=== PATIENT | male | born 1960 | race Caucasian/White ===

== ENCOUNTER 2017-07-25 16:22 | Emergency (ER) | payer MEDICARE, MEDICAID ==
[~2017-07-25] VITALS: Ht 182.9 cm; Wt 67.3 kg
[~2017-07-25 16:22] MED LIST: ADDERALL10 MG PO; APRISO0.375 GM PO; BUSPAR5 MG PO; CATAPRES 0.1MG0.1 MG PO; CEPHALEXIN500 M1 PO; COGENTIN .0.5 MG/TAB PO; DEPAKENE; DEPAKOTE ER 25250 MG PO; DEPAKOTE ER 50500 MG PO; DESYREL 100MG100 MG PO; INTUNIV4 MG PO; NORCO 325 MG-51 TAB PO; NORCO 325 MG-7.1 TAB PO; PHENERGAN W/CO120 ML PO; PRINIVIL20 MG PO; PROCARDIA XL 3030 MG PO; REMERON; REMERON30 MG PO; SENOKOT S 50 MG1 TAB PO; SEROQUEL 200MG200 MG PO; SEROQUEL300 MG PO; ULTRAM 50MG TAB50 MG PO; ZITHROMAX 250M250 MG PO; ZOLOFT
[2017-07-25 16:27] VITALS: TEMP 98.5
[2017-07-25] MEDS ORDERED: HUMIRA40 MG/0.1 SQ (16:49)
[2017-07-25] MEDS ORDERED: PREDNISONE10 MG PO (16:49)
[2017-07-25] MEDS ORDERED: IMURAN 50MG TAB50 MG PO (16:51)
[2017-07-25 17:02] LABS: BASO % 0.1 % (0.0-2.0); EOS % 0.3 % (0-4.0); GRAN # 6.3 (1.4-6.5); GRAN % 84.6 % (42.2-75.2); HEMATOCRIT 39.9 % (42.0-52.0); HEMOGLOBIN 14.1 g/dl (13.5-18.0); LYMPH # 0.7 (1.2-3.4); LYMPH % 9.3 % (20.0-51.0); MEAN CELL VOLUME 88 fl (80.0-100.0); MEAN CORPUSCULAR HEMOGLOBIN 31 pg (27.0-31.0); MEAN CORPUSCULAR HGB CONC 35 g/dl (33.0-37.0); MEAN PLATELET VOLUME 8.1 fl (7.4-10.4); MONO # 0.4 (0.1-0.6); PLATELET COUNT 306 K/mm3 (130-400); RED BLOOD COUNT 4.55 M/mm3 (4.20-5.60); REDCELL DISTRIBUTION WIDTH-CV 15.9 % (11.5-14.5)
[2017-07-25 17:18] LABS: ALBUMIN 3.7 gm/dL (3.5-5.0); BILIRUBIN,TOTAL 0.7 mg/dL (0.0-1.0); C-REACTIVE PROTEIN 0.6 mg/dL (0.0-0.9); CALCIUM 9.2 mg/dL (8.4-10.2); CREATININE, serum 0.77 mg/dL (0.66-1.25); POTASSIUM 4.6 mmol/L (3.4-5.0)
[2017-07-25] MEDS ORDERED: PREDNISONE20 MG PO (18:26)
[2017-07-25 18:30] VITALS: BP 136/84; PULSE 79
== END 2017-07-25 18:35 | disposition home or self-care (01) ==
LOC: COL.ER 16:22
PROVIDERS: Emergency Medicine
DX: K50.90 Crohn's disease, unspecified, without complications (principal); E87.1 Hypo-osmolality and hyponatremia; E86.0 Dehydration; J45.901 Unspecified asthma with (acute) exacerbation; F32.9 Major depressive disorder, single episode, unspecified; F43.10 Post-traumatic stress disorder, unspecified; Z90.49 Acquired absence of other specified parts of digestive tract; Z87.891 Personal history of nicotine dependence
CPT/HCPCS: J2060; J2405; J7030; J7512

== ENCOUNTER 2017-07-28 13:04 | Day surgery (SDC) | payer MEDICARE, MEDICAID ==
[~2017-07-28] VITALS: Ht 182.9 cm; Wt 67.5 kg
[~2017-07-28 13:04] MED LIST changes: +HUMIRA40 MG/0.1 SQ; +IMURAN 50MG TAB50 MG PO; +PREDNISONE10 MG PO; +PREDNISONE20 MG PO
[2017-07-28 13:38] VITALS: BP 126/93; PULSE 83; TEMP 98.8
[2017-07-28 14:35] VITALS: BP 98/73; PULSE 73; TEMP 98.1
[2017-07-28 14:50] VITALS: BP 102/77; PULSE 81
[2017-07-28 15:05] VITALS: BP 118/73; PULSE 77
[2017-07-28 15:20] VITALS: BP 130/60; PULSE 79
== END 2017-07-28 15:45 | disposition home or self-care (01) ==
LOC: SDCO 13:04
DX: K50.811 Crohn's disease of both small and large intestine with rectal bleeding (principal); I10 Essential (primary) hypertension; D50.0 Iron deficiency anemia secondary to blood loss (chronic); Z79.899 Other long term (current) drug therapy
CPT/HCPCS: J2250; J3010; J7030

== ENCOUNTER 2018-05-04 21:16 | Inpatient (IN) | payer MEDICARE, MEDICAID ==
[2018-05-04] VITALS (20 sets, daily range): BP systolic 127; BP diastolic 81; PULSE 68; TEMP 98.8; O2SAT 92–100
[~2018-05-04] VITALS: Ht 182.9 cm; Wt 71.5 kg
[~2018-05-04 21:16] MED LIST changes: +ZOFRAN ODT4 MG PO
[2018-05-04 21:59] LABS: BASO % 0.1 % (0.0-2.0); GRAN # 11.4 (1.4-6.5); GRAN % 95.1 % (42.2-75.2); HEMATOCRIT 41.6 % (42.0-52.0); HEMOGLOBIN 14.5 g/dl (13.5-18.0); LYMPH # 0.3 (1.2-3.4); LYMPH % 2.8 % (20.0-51.0); MEAN CELL VOLUME 89 fl (80.0-100.0); MEAN CORPUSCULAR HEMOGLOBIN 31 pg (27.0-31.0); MEAN CORPUSCULAR HGB CONC 35 g/dl (33.0-37.0); MEAN PLATELET VOLUME 8.6 fl (7.4-10.4); MONO # 0.2 (0.1-0.6); MONO % 1.7 % (1.7-9.3); PLATELET COUNT 288 K/mm3 (130-400); RED BLOOD COUNT 4.67 M/mm3 (4.20-5.60); REDCELL DISTRIBUTION WIDTH-CV 13.1 % (11.5-14.5)
[2018-05-04 22:11] LABS: ALBUMIN 3.8 gm/dL (3.5-5.0); BILIRUBIN,TOTAL 0.8 mg/dL (0.0-1.0); C-REACTIVE PROTEIN 1.8 mg/dL (0.0-0.9); CREATININE, serum 0.95 mg/dL (0.66-1.25); POTASSIUM 4.4 mmol/L (3.4-5.0); TOTAL PROTEIN 6.7 gm/dL (6.4-8.2)
--- NOTE | 2018-05-04 22:35 | NUR ---
Pt report received from Tawanna HOGUE in ED. Awaiting pt room to complete getting cleaned. Will call when room is ready.
[2018-05-04] MEDS ORDERED: STELARA90 MG/ML SQ (23:00)
[2018-05-04] MEDS ORDERED: REMERON45 MG PO (23:01)
[2018-05-04] MEDS ORDERED: 00186-0370-20 IH (23:02)
--- NOTE | 2018-05-04 23:27 | NUR ---
Tawanna called in ED and notified room is ready.
--- NOTE | 2018-05-04 23:30 | NUR ---
Pt arrived via w/c in street clothes to ICU05. Pt got up from w/c and walked to the other side of the room. Pt was assisted into a gown and gathered personal belongings to place at bedside table. Pt reported to staff wanting to sleep. Reports prior medication for nausea has improved nausea, although still present it is tolerable at this time.
[2018-05-04 23:52] LABS: INR 0.9 (0.8-3.0); PROTHROMBIN TIME 10.5 SECONDS (9.7-12.8)
[2018-05-04 23:54] LABS: PARTIAL THROMBOPLASTIN TIME 29.7 SECONDS (26.0-37.0)
[2018-05-05] VITALS (10 sets, daily range): BP systolic 129–192; BP diastolic 83–111; PULSE 63–125; TEMP 97.8–98.9
--- NOTE | 2018-05-05 03:15 | NUR ---
Pt resting in bed at this time with eyes closed and lights off.
[2018-05-05 05:14] LABS: COLLECTION METHOD CLEAN CATCH
[2018-05-05 05:16] LABS: BASO % 0.1 % (0.0-2.0); GRAN # 10.4 (1.4-6.5); HEMATOCRIT 40.8 % (42.0-52.0); LYMPH # 0.6 (1.2-3.4); LYMPH % 4.8 % (20.0-51.0); MEAN CELL VOLUME 90 fl (80.0-100.0); MEAN CORPUSCULAR HEMOGLOBIN 31 pg (27.0-31.0); MEAN CORPUSCULAR HGB CONC 34 g/dl (33.0-37.0); MEAN PLATELET VOLUME 8.4 fl (7.4-10.4); MONO # 0.7 (0.1-0.6); MONO % 5.6 % (1.7-9.3); PLATELET COUNT 263 K/mm3 (130-400); RED BLOOD COUNT 4.53 M/mm3 (4.20-5.60); REDCELL DISTRIBUTION WIDTH-CV 13.2 % (11.5-14.5)
[2018-05-05 05:24] LABS: MUCOUS Present /lpf; PH 6 (5-8); SQUAMOUS EPITHELIAL None Seen /hpf; URINE APPEARANCE Clear; URINE BACTERIA None Seen /hpf; URINE BILIRUBIN Negative (NEGATIVE); URINE BLOOD 1+ (NEGATIVE); URINE COLOR Yellow; URINE GLUCOSE 2+ (NEGATIVE); URINE KETONE Negative (NEGATIVE); URINE LEUKOCYTE ESTERASE Negative (NEGATIVE); URINE NITRATE Negative (NEGATIVE); URINE PROTEIN(semi-quant) Negative (NEGATIVE); URINE UROBILINOGEN Negative (NEGATIVE)
[2018-05-05 05:29] LABS: TRICYCLIC ANTIDEPRESS URINE NEGATIVE
[2018-05-05 05:31] LABS: CREATININE, serum 0.91 mg/dL (0.66-1.25); POTASSIUM 4.3 mmol/L (3.4-5.0)
--- NOTE | 2018-05-05 07:21 | NUR ---
Report provided to Nazia Raymundo RN. Pt resting in bed at this time.
--- NOTE | 2018-05-05 08:46 | NUR ---
Report called to MYKEL Yates. Call back number provided.
--- NOTE | 2018-05-05 08:50 | NUR ---
Patient transported to medical room 307 via wheelchair with all belongings sent with. Call light provided, bed placed in low and locked position, bed alarm armed, rails up x3. MYKEL Yates aware of patient arrival.
--- NOTE | 2018-05-05 09:33 | NUR ---
Pt arrived to room 307 at this time. He is A/O x3. His breathing is even and unlabored on RA. Pt denies SOB. Pain to lower abdomen 2-3/10. No nausea at this time. Pt denies vomitting. No diarrhea. Pt tolerating juice without complications. Seizure precautions in place, bed alarm on. IVF infusing without complications. Call light within reach. Will continue to monitor.
--- NOTE | 2018-05-05 12:16 | NUR ---
Pt tolerating clears without pain, diarrhea or N/V. He has been able to drink two clear ensures, one juice and currently working on jello and beef broth. Pt requesting to advance his diet - will speak with Dr. Louies when available. Pt denies any other concerns.
--- NOTE | 2018-05-05 18:52 | NUR ---
Pt continues to score on CIWA protocol requiring PRN Ativan. No pain, N/V or diarrhea through the day. Tolerated clear liquids without difficulty. BP and pulse elevated, treated per protocol. Seizure precautions in place. Bed alarm on, will continue to monitor.
[2018-05-06] VITALS (13 sets, daily range): BP systolic 133–182; BP diastolic 70–101; PULSE 70–127; TEMP 97.6–99.2
--- NOTE | 2018-05-06 01:03 | NUR ---
Patient scored on detox and received 1mg Ativan around 2000, and 0.5mg around 2200. Did not score enough to get Ativan around 0000. Did received PRN Hydralazine for elevated BP. Received PRN Zofran for nausea as requested. Patient is resting in bed with eyes closed at this time. NS running at 125 ml/hr to IV site to right forearm. Continues on clear liquids per orders, and needs reminders on why, but very forgetful. Call light is within reach. Seizure precautions continue. Bed alarm is on, as patient gets forgeful and tries to get up independently.
--- NOTE | 2018-05-06 06:18 | NUR ---
Around 0200, patient was getting up to go to the bathroom and took out IV to right forearm. This nurse attempted to start new one to left hand and another nurse attempted to left forearm, both unsuccessful. Another nurse able to start new IV to left hand. Coban wrapped around site for extra protection. Received PRN Zofran and Hydralazine for nausea and elevated BP. These were effective. Resting in bed with eyes closed at this time. Call light is within reach. Continues on clear liquid diet. Has not had any bowel movement this shift. NS continues at 125 ml/hr to left hand. Bed alarm on.
[2018-05-06 06:41] LABS: BASO % 0.1 % (0.0-2.0); GRAN # 8.4 (1.4-6.5); GRAN % 89.2 % (42.2-75.2); HEMOGLOBIN 12.7 g/dl (13.5-18.0); LYMPH # 0.6 (1.2-3.4); LYMPH % 5.9 % (20.0-51.0); MEAN CELL VOLUME 89 fl (80.0-100.0); MEAN CORPUSCULAR HEMOGLOBIN 31 pg (27.0-31.0); MEAN CORPUSCULAR HGB CONC 34 g/dl (33.0-37.0); MEAN PLATELET VOLUME 8.7 fl (7.4-10.4); MONO # 0.4 (0.1-0.6); MONO % 4.4 % (1.7-9.3); PLATELET COUNT 284 K/mm3 (130-400); RED BLOOD COUNT 4.13 M/mm3 (4.20-5.60); REDCELL DISTRIBUTION WIDTH-CV 13.2 % (11.5-14.5)
[2018-05-06 06:45] LABS: HEMATOCRIT 36.9 % (42.0-52.0)
[2018-05-06 06:56] LABS: CALCIUM 8.6 mg/dL (8.4-10.2); CREATININE, serum 0.75 mg/dL (0.66-1.25); POTASSIUM 3.9 mmol/L (3.4-5.0)
--- NOTE | 2018-05-06 07:00 | NUR ---
Reported on to MYKEL Yates.
--- NOTE | 2018-05-06 08:00 | NUR ---
Pt is drowsy. Harish upper extremity weakness, equal. INT left hand CDI, with coban wrap. No SCDs/TEDs. Seizure pads affixed to bed rails. Bed in lowest position.
--- NOTE | 2018-05-06 09:07 | NUR ---
Pt assessment complete. Pt is laying in bed on the phone upon entry, he is A/O x3. His breathing is even and unlabored on RA. Pt denies SOB. Pt reports "some pain" to abdomen, and reports "some nausea". Pt asking to advance his diet, reiterated the need to stay on clear liquids for the time being. Pt states he had no stools overnight or this am. Seizure precautions in place, bed alarm on. Will continue to monitor.
--- NOTE | 2018-05-06 10:15 | NUR ---
Pt has increased BP, pulse, and anxiety compared to earlier detox evaluation. Will have MYKEL Yates admin IV detox protocol.
--- NOTE | 2018-05-06 10:16 | NUR ---
Initial visit; Patient thanked for welcome jesture to [facility].
--- NOTE | 2018-05-06 10:45 | NUR ---
Nicotine patch administered to left deltoid. Lovenox SQ injection administered to right abdomen.
--- NOTE | 2018-05-06 12:30 | NUR ---
Reported off to MYKEL Yates.
--- NOTE | 2018-05-06 13:32 | NUR ---
FER met with patient to disucss discharge planning. Patient lives independently at home. Patient's PCP is Dr Pearl and he obtains prescriptions at [facility] pharmacy. Patient reports no difficulty obtains medications. Patient does not currently use any home health service but is interested in home health for nursing. Patient does not use any medical equipment. Patient does not have a DPOA and is not interested in completing one at this time. FER will inform doctor of patient's request and continue to follow.
--- NOTE | 2018-05-06 18:36 | NUR ---
Pt continued to score on CIWA protocol. Pt had some anxiety through the day. Continued to ask about his abdominal surgery. Explained to patient that as of right now there is no plan to have surgery, pt reports he called Dr. Ramon's office who said he is having the surgery. Told pt we would continue to keep him updated if they plan to do surgery. Pt tolerated full liquid diet without any vomitting. No BM's today. BP elevated, PRN Apresoline administered. Bed alarm in place, call light within reach.
--- NOTE | 2018-05-06 21:19 | NUR ---
Patient assessed at this time. NS continues at 75 ml/hr to peripheral IV to left hand. Denies having pain and discomfort. Voices no nees or concerns at this time. Hypoactive bowel sounds, but continues to pass gas. Complained of nausea, and given PRN Zofran. Given 1mg Ativan for detox scoring of 6. Sitting up in bed on phone at this time. Voices no needs or concerns. Call light is within reach.
[2018-05-07] VITALS (11 sets, daily range): BP systolic 133–171; BP diastolic 66–99; PULSE 97–121; TEMP 98–98.9
[2018-05-07 06:15] LABS: HEMOGLOBIN 13.3 g/dl (13.5-18.0); MEAN CELL VOLUME 89 fl (80.0-100.0); MEAN CORPUSCULAR HEMOGLOBIN 31 pg (27.0-31.0); MEAN CORPUSCULAR HGB CONC 35 g/dl (33.0-37.0); MEAN PLATELET VOLUME 8.7 fl (7.4-10.4); PLATELET COUNT 316 K/mm3 (130-400); RED BLOOD COUNT 4.26 M/mm3 (4.20-5.60); REDCELL DISTRIBUTION WIDTH-CV 13.4 % (11.5-14.5)
[2018-05-07 06:28] LABS: CALCIUM 8.8 mg/dL (8.4-10.2); CREATININE, serum 0.83 (0.66-1.25); POTASSIUM 3.8 mmol/L (3.4-5.0)
--- NOTE | 2018-05-07 06:34 | NUR ---
Patient has been receiving PRN Ativan about every 2 hours per detox protocol. Has received PRN Hydralazine per orders for elevated BP, as well as PRN Zofran for nausea. Bowel sounds remain hypoactive. No BM this shift. Patient has been following full liquid diet. Updated on note from Dr. Cantrell and voiced understanding. Denies having any questions or concerns at this time. Resting in bed with eyes closed at this time. Call light is within reach. Remains on seizure precautions.
--- NOTE | 2018-05-07 08:24 | NUR ---
Pt assessment complete. Pt will have a student nurse caring for him this morning. Pt is sitting up in bed eating breakfast. Pt reports some lower abdominal pain. Some nausea, but reports "I'm keeping it down". No BM's. Seizure precautions in place, bed alarm on. Pt denies needs, call light wihtin reach.
--- NOTE | 2018-05-07 13:53 | NUR ---
Primary nurse was assisted with [id number] patient care by [employer] student Adalgisa De La Cruz and [employer] instructor Thea Ewing RN-.
--- NOTE | 2018-05-07 18:57 | NUR ---
Pt continued to score 4-5 on CIWA protocol. BP remained elevated. Pt had some anxiety and confusion through the day, stating he is having surgery. POC discussed with patient. No vomitting or BM's today. Bed alarm on and call light within reach.
--- NOTE | 2018-05-07 20:22 | NUR ---
Pt resting in bed on phone. Assessment completed- lungs clear, abomdinal sounds active, ate dinner- no reports of nausea/vomiting at this time, pulses +3. CIWA protocol- scored 6 given 1 mg IV ativan, tachycardic and elevated BP. Denies pain. Requesting evening trazadone, will bring in with IV flagyl. No further needs at this time.
[2018-05-08] VITALS (13 sets, daily range): BP systolic 133–180; BP diastolic 74–103; PULSE 81–109; TEMP 97.5–99.3
--- NOTE | 2018-05-08 | NUR ---
THIS NURSE RESUMED CARES PT AT THIS TIME. PT SLEEPING AT THIS TIME.
[2018-05-08 06:03] LABS: GRAN # 5.5 (1.4-6.5); GRAN % 82.9 % (42.2-75.2); HEMOGLOBIN 12.8 g/dl (13.5-18.0); LYMPH # 0.6 (1.2-3.4); LYMPH % 9.3 % (20.0-51.0); MEAN CELL VOLUME 90 fl (80.0-100.0); MEAN CORPUSCULAR HEMOGLOBIN 31 pg (27.0-31.0); MEAN CORPUSCULAR HGB CONC 35 g/dl (33.0-37.0); MEAN PLATELET VOLUME 8.6 fl (7.4-10.4); MONO # 0.5 (0.1-0.6); MONO % 7.2 % (1.7-9.3); PLATELET COUNT 317 K/mm3 (130-400); RED BLOOD COUNT 4.13 M/mm3 (4.20-5.60); REDCELL DISTRIBUTION WIDTH-CV 13.2 % (11.5-14.5)
[2018-05-08 06:15] LABS: ALBUMIN 3.2 gm/dL (3.5-5.0); BILIRUBIN,TOTAL 0.5 mg/dL (0.0-1.0); CALCIUM 8.8 mg/dL (8.4-10.2); CREATININE, serum 0.84 (0.66-1.25); POTASSIUM 4.2 mmol/L (3.4-5.0); TOTAL PROTEIN 5.7 gm/dL (6.4-8.2)
--- NOTE | 2018-05-08 07:06 | NUR ---
PT WAS SCORING 1-2 MOST OF NOC. THIS AM PT DID SCORE 6 ON THE CIWA AND RECIEVED 1MG OF ATIVAN. BP WAS HIGH AND PT RECIEVED PRN HYDRALIZINE. PT APPEARED TO HAVE SLEPT WELL. NO ISSUES OR CONERNS VOICED
--- NOTE | 2018-05-08 07:30 | NUR ---
Received report from Donna HOGUE.
--- NOTE | 2018-05-08 09:30 | NUR ---
Pt complaining of nausea, gave PRN Zofran. Pt denies any pain, breathing even and unlabored. Pt is alert and oriented, no tremors noted. Anxious to leave the hospital. Pt up to the restroom. Student nurse MATC in room.
--- NOTE | 2018-05-08 10:30 | NUR ---
Reviewed [facility] students assessment, agree with students assessment.
--- NOTE | 2018-05-08 13:42 | NUR ---
Primary nurse was assisted with [phone] patient care by [employer] [employer] student Adalgisa De La Cruz and [employer] [employer] instructor Thea Ewing RN-.
--- NOTE | 2018-05-08 14:00 | NUR ---
Pt lying in bed. Stated he still feels slightly nauseas. Breathing even and unlabored, denies pain or shortness of breath. No tremors noted. Pt still has not been able to have a bm. Will continue to monitor.
--- NOTE | 2018-05-08 16:29 | NUR ---
SW met with patient about home health choice for halfway. Patient would like SW to fax a referral to [facility]. SW will fax referrl.
--- NOTE | 2018-05-08 17:36 | NUR ---
Pt had bowel movement. Pt states he is eager to go home tomorrow now that he has had one.
--- NOTE | 2018-05-08 18:25 | NUR ---
Pt scored 4 on CIWA protocol. Administered 0.5mg ativan per protocol. Pt has tolerated his full liquid diet and is now able to advance to soft diet. Pt voiced understanding. Denies any needs at this time.
[2018-05-09 02:00] VITALS: BP 172/92; PULSE 79; TEMP 97.8
--- NOTE | 2018-05-09 04:20 | NUR ---
PT HAS HAD UNEVENTFUL NOC. HAD C/O NAUSEA AND REQUESTED SOME ANTINAUSEA MEDICATION AND SOME HOT COCCO. NO OTHER ISSUES OR CONSERNS VOICED AT THIS TIME.
[2018-05-09 04:53] VITALS: BP 130/84; PULSE 78; TEMP 96.4
[2018-05-09 06:35] LABS: EOS # 0.1 (0.0-0.7); EOS % 0.9 % (0-4.0); GRAN # 4.8 (1.4-6.5); GRAN % 63.1 % (42.2-75.2); LYMPH # 1.7 (1.2-3.4); MEAN CELL VOLUME 90 fl (80.0-100.0); MEAN CORPUSCULAR HEMOGLOBIN 31 pg (27.0-31.0); MEAN CORPUSCULAR HGB CONC 34 g/dl (33.0-37.0); MONO # 0.9 (0.1-0.6); MONO % 12.1 % (1.7-9.3); PLATELET COUNT 322 K/mm3 (130-400); REDCELL DISTRIBUTION WIDTH-CV 13.2 % (11.5-14.5)
[2018-05-09 06:41] LABS: HEMATOCRIT 34.9 % (42.0-52.0)
[2018-05-09 06:50] LABS: CALCIUM 8.4 mg/dL (8.4-10.2); CREATININE, serum 0.92 (0.66-1.25); POTASSIUM 4.1 mmol/L (3.4-5.0)
--- NOTE | 2018-05-09 07:00 | NUR ---
Received report from Donna HOGUE. Pt lying in bed eyes closed, breathing even and unlabored.
[2018-05-09 07:32] VITALS: BP 156/92; PULSE 78; TEMP 99.1
--- NOTE | 2018-05-09 07:40 | NUR ---
Pt sitting in bed, breathing even and unlabored. Complains of minor pain to abdomen and slight nausea. States he feels much better today. Pt is alert and oriented, eager to leave the hospital. Assessment completed. Denies any needs at this time.
[2018-05-09] MEDS ORDERED: FLAGYL500 MG PO (10:04)
[2018-05-09] MEDS ORDERED: TOPROL XL 50MG50 MG PO (10:05)
[2018-05-09] MEDS ORDERED: COLACE 100100 MG/CAP PO (10:06)
[2018-05-09] MEDS ORDERED: PREDNISONE20 MG PO (10:06)
[2018-05-09] MEDS ORDERED: MULTI VITAMINS1 TAB PO (10:07)
[2018-05-09 10:15] VITALS: BP 141/85; PULSE 101; TEMP 99.3
[2018-05-09 10:21] VITALS: BP 113/59; PULSE 102; TEMP 98.7
--- NOTE | 2018-05-09 11:17 | NUR ---
FER faxed DC summary to [facility] to [phone]
--- NOTE | 2018-05-09 12:46 | NUR ---
All discharge paperwork gone over, questions asked and answered. INT to RH removed, no redness or swelling noted. Catheter tip intact. Pt is gathering all belongings and waiting on a ride.
--- NOTE | 2018-05-09 13:11 | NUR ---
pt taken out via wheelchair by [facility] staff. Pt had all belongings with him.
== END 2018-05-09 13:13 | disposition home health service (06) | DRG 385 ==
LOC: COL.ER 21:16 → ICU 22:12 → MEDICAL 22:12
PROVIDERS: Emergency Medicine; Hospitalist; Nurse Practitioner Family; Physician Assistant; ADMIT Hospitalist
DX: K50.012 Crohn's disease of small intestine with intestinal obstruction (principal); E43 Unspecified severe protein-calorie malnutrition; E87.1 Hypo-osmolality and hyponatremia; Z68.1 Body mass index [BMI] 19.9 or less, adult; I10 Essential (primary) hypertension; F90.9 Attention-deficit hyperactivity disorder, unspecified type; F32.9 Major depressive disorder, single episode, unspecified; F10.10 Alcohol abuse, uncomplicated; J44.9 Chronic obstructive pulmonary disease, unspecified; F17.210 Nicotine dependence, cigarettes, uncomplicated
CPT/HCPCS: 99222-AI; 99232-AI; 99233-AI; 99239; J0360; J1170; J1650; J2060; J2405; J2930; J7030; Q9967

== ENCOUNTER 2018-05-07 16:16 | Inpatient (IN) | payer MEDICARE, MEDICAID ==
[~2018-05-07] VITALS: Ht 182.9 cm; Wt 71.2 kg
[~2018-05-07 16:16] MED LIST changes: +00186-0370-20 IH; +REMERON45 MG PO; +STELARA90 MG/ML SQ
[2018-05-09] MEDS ORDERED: FLAGYL500 MG PO (10:04)
[2018-05-09] MEDS ORDERED: TOPROL XL 50MG50 MG PO (10:05)
[2018-05-09] MEDS ORDERED: COLACE 100100 MG/CAP PO (10:06)
[2018-05-09] MEDS ORDERED: PREDNISONE20 MG PO (10:06)
[2018-05-09] MEDS ORDERED: MULTI VITAMINS1 TAB PO (10:07)
[2018-05-13] VITALS (115 sets, daily range): BP systolic 75–107; BP diastolic 46–60; PULSE 58–65; TEMP 96.4–98.9; O2SAT 97–100
[2018-05-13 10:48] LABS: HEMATOCRIT 40.5 % (42.0-52.0); HEMOGLOBIN 13.8 g/dl (13.5-18.0); MEAN CELL VOLUME 91 fl (80.0-100.0); MEAN CORPUSCULAR HEMOGLOBIN 31 pg (27.0-31.0); MEAN CORPUSCULAR HGB CONC 34 g/dl (33.0-37.0); MEAN PLATELET VOLUME 8.3 fl (7.4-10.4); PLATELET COUNT 381 K/mm3 (130-400); RED BLOOD COUNT 4.46 M/mm3 (4.20-5.60); REDCELL DISTRIBUTION WIDTH-CV 13.4 % (11.5-14.5)
[2018-05-13 10:56] LABS: ALBUMIN 3.6 gm/dL (3.5-5.0); BILIRUBIN,TOTAL 0.6 mg/dL (0.0-1.0); CALCIUM 8.9 mg/dL (8.4-10.2); CREATININE, serum 1.73 (0.66-1.25); TOTAL PROTEIN 6.3 gm/dL (6.4-8.2)
--- NOTE | 2018-05-13 11:44 | NUR ---
Admission B complete. Pt admitted to [facility] via ambulation. Pt awake and alert. Pt c/o being dizzy and short of breath. Admitting blood pressure was 75/52 pulse 58. Pt changed and lying in trendelenberg- blood pressure increased to 83/55. and Rod BAUTISTA notified. Instructed to run 1000ml bolus and obtain lab. 1000ml LR infused. Blood pressure increased to 93/59. Rod BAUTISTA notfied-he notified . Will continue to monitor. Parents at bedside. Call light within reach.
--- NOTE | 2018-05-13 13:45 | NUR ---
Report given to Malissa HOGUE on surgical floor. Pt resting in bed. Will transfer pt to surgical floor.
--- NOTE | 2018-05-13 14:00 | NUR ---
Pt transfered to [facility] via cart. Pt ambulates to bed with stand by assistance. Side rails up x2. Call light within reach.
--- NOTE | 2018-05-13 16:27 | NUR ---
Patient admitted to room 348. report from Kylah Wren. Hospitalist team has rounded. Orders obtained. 500 ml NS bolus completed. Ivf to Rfa. Patient tolerates clear liquids, denies nausea. He has yet to void to obtain sample. Med rec & assessment completed. scds ble. Will monitor.
--- NOTE | 2018-05-13 17:49 | NUR ---
Patient sleeping, lying on the right side.
--- NOTE | 2018-05-13 18:01 | NUR ---
Patient BP continues to be low-[employer] senior stereo compiler team lead notifed.
--- NOTE | 2018-05-13 18:29 | NUR ---
notifed of patient moving to ICU for continued hypotention. Iv bolus infusing. Will report off to ICU nurse caring for rakesh. He has yet to void since arrival to the floor.
--- NOTE | 2018-05-13 19:25 | NUR ---
Received telephone report from MYKEL Leonardo.
--- NOTE | 2018-05-13 19:43 | NUR ---
Report to Icu nurse. Patient Transferred with belongings to ICU 5.
--- NOTE | 2018-05-13 20:02 | NUR ---
Arrived to the unit via wheelchair accompanied by RN. Patient able to self transfer to ICU bed. Attached to all monitor and assessment complete. Reports mild dizziness but states it is much improved after receiving fluids. Instructed to not attempt to stand up alone and to call if needing to get up. Patient agrees with this. VS stable at this time. No other concerns.
[2018-05-13 22:07] LABS: CREATININE, serum 0.99 (0.66-1.25); FRACTIONAL EXCRETION OF NA+ 0.7 %
[2018-05-13] MEDS ORDERED: STRATTERA 10MG10 MG (23:17)
[2018-05-14] VITALS (679 sets, daily range): BP systolic 123–167; BP diastolic 73–99; PULSE 60–79; TEMP 97.8–98.8; O2SAT 81–100
--- NOTE | 2018-05-14 00:47 | NUR ---
Resting comfortably in bed. Independent with using urinal while sitting on side of bed. Will continue to monitor.
[2018-05-14 05:13] LABS: BASO % 0.1 % (0.0-2.0); EOS % 0.1 % (0-4.0); GRAN # 9.4 (1.4-6.5); LYMPH # 0.9 (1.2-3.4); LYMPH % 8.1 % (20.0-51.0); MEAN CELL VOLUME 92 fl (80.0-100.0); MEAN CORPUSCULAR HEMOGLOBIN 31 pg (27.0-31.0); MEAN CORPUSCULAR HGB CONC 34 g/dl (33.0-37.0); MEAN PLATELET VOLUME 8.4 fl (7.4-10.4); MONO # 0.9 (0.1-0.6); MONO % 7.7 % (1.7-9.3); PLATELET COUNT 339 K/mm3 (130-400); REDCELL DISTRIBUTION WIDTH-CV 13.5 % (11.5-14.5)
[2018-05-14 05:17] LABS: HEMATOCRIT 35.7 % (42.0-52.0)
[2018-05-14 05:27] LABS: ALBUMIN 2.7 gm/dL (3.5-5.0); BILIRUBIN,TOTAL 0.4 mg/dL (0.0-1.0); CREATININE, serum 0.9 (0.66-1.25); PHOSPHOROUS 4.1 mg/dL (2.5-4.5); POTASSIUM 4.6 mmol/L (3.4-5.0)
--- NOTE | 2018-05-14 05:30 | NUR ---
Incontinent of stool. Katherine-care provided and bed linens changed. Pt requested antidiarrheal medication due to "continuous leakage" . Stated that physician would probably not want to give this medication as it would mean re-doing the bowel prep before the scheduled surgery on Friday05/15/18. Patient understanding. Will continue to monitor.
--- NOTE | 2018-05-14 07:20 | NUR ---
Bedside report received from MYKEL Monsivais.
--- NOTE | 2018-05-14 07:32 | NUR ---
Bedside report given to MYKEL Benitez. Patient care transfered.
--- NOTE | 2018-05-14 08:00 | NUR ---
Assessment complete, patient resting in bed, reports "leakage" from his bottom, denies knowing "when it is coming out." Patient assisted to commode, brief placed on patient, patient back to bed, call light within reach.
--- NOTE | 2018-05-14 09:24 | NUR ---
Initial visit; Patient thanked Manager Molecular for assisting him with practical issues and offering Spiritual Care.
--- NOTE | 2018-05-14 13:41 | NUR ---
SW attended clinical rounding and met with patient to discuss discharge planning. Patient lives independently in [place]. HIs PCP is Dr Pearl and he obtains his medications from [facility]. Patient had worked with any his last admission to set up SN through [facility]. SW student called Lex at [facility] who confirmed that insurance had given auth and they were waiting until after this surgery to complete intake. They are still able to accept patient. SW will update [facility] throughout patients stay and send DC orders. SW to continue to follow.
--- NOTE | 2018-05-14 14:54 | NUR ---
Patient up to commode, steady gait noted.
--- NOTE | 2018-05-14 19:00 | NUR ---
Bedside report received from Eli HOGUE. Pt sitting in bed and called down to cafeteria for a last tray of food before they close. Pt reports wanting protein in diet since "Namita been on clear liquid since Friday". Pt currently has a tray of clear liquid items at bedside table currently. Glasses in place.
--- NOTE | 2018-05-14 19:12 | NUR ---
Bedside report given to MYKEL Mclain.
--- NOTE | 2018-05-14 21:00 | NUR ---
Pt assessment complete at this time. Pt sitting in bed [place] style with television on and personal belongings with in reach. Pt verbalized to this nurse how "this is happening at a bad time. I live paycheck to paycheck and over the winter work slows down." Pt mentioned concern regarding restrictions after going home after surgery. Continues to verbalize the clear liquid diet has been since Friday with restrictions for the week prior and knowing the restrictions following surgery, and the concern for the lack of protein intake. The reasons behind the clear liquid diet was reviewed at this time.
[2018-05-14 23:35] LABS: COLLECTION METHOD CLEAN CATCH
[2018-05-14 23:41] LABS: PH 6 (5-8); SQUAMOUS EPITHELIAL None Seen /hpf; URINE APPEARANCE Clear; URINE BACTERIA None Seen /hpf; URINE BILIRUBIN Negative (NEGATIVE); URINE BLOOD Negative (NEGATIVE); URINE COLOR Yellow; URINE GLUCOSE 2+ (NEGATIVE); URINE KETONE Negative (NEGATIVE); URINE LEUKOCYTE ESTERASE Negative (NEGATIVE); URINE NITRATE Negative (NEGATIVE); URINE PROTEIN(semi-quant) Negative (NEGATIVE); URINE RBC 0-2 /hpf; URINE UROBILINOGEN Negative (NEGATIVE)
[2018-05-15] VITALS (647 sets, daily range): BP systolic 133–199; BP diastolic 77–120; PULSE 67–85; TEMP 97.9–98.6; O2SAT 68–100
[2018-05-15 05:10] LABS: BASO % 0.1 % (0.0-2.0); EOS # 0.1 (0.0-0.7); EOS % 0.9 % (0-4.0); GRAN # 4.2 (1.4-6.5); GRAN % 60.3 % (42.2-75.2); HEMOGLOBIN 11.3 g/dl (13.5-18.0); LYMPH # 1.7 (1.2-3.4); LYMPH % 24.6 % (20.0-51.0); MEAN CELL VOLUME 92 fl (80.0-100.0); MEAN CORPUSCULAR HEMOGLOBIN 31 pg (27.0-31.0); MEAN CORPUSCULAR HGB CONC 34 g/dl (33.0-37.0); MEAN PLATELET VOLUME 8.2 fl (7.4-10.4); MONO # 0.9 (0.1-0.6); MONO % 13.2 % (1.7-9.3); PLATELET COUNT 287 K/mm3 (130-400); RED BLOOD COUNT 3.68 M/mm3 (4.20-5.60); REDCELL DISTRIBUTION WIDTH-CV 13.5 % (11.5-14.5)
[2018-05-15 05:11] LABS: HEMATOCRIT 33.7 % (42.0-52.0)
[2018-05-15 05:24] LABS: ALBUMIN 2.7 gm/dL (3.5-5.0); BILIRUBIN,TOTAL 0.4 mg/dL (0.0-1.0); CREATININE, serum 0.7 (0.66-1.25); POTASSIUM 3.7 mmol/L (3.4-5.0); TOTAL PROTEIN 5.1 gm/dL (6.4-8.2)
--- NOTE | 2018-05-15 07:25 | NUR ---
Report received from Rayne HOGUE and care resumed.
--- NOTE | 2018-05-15 07:25 | NUR ---
Bedside report provided to Doris HOGUE. Pt resting in bed at this time.
--- NOTE | 2018-05-15 11:03 | NUR ---
FER attended clinical rounding. Patient is going to surgery today. Will continue to follow and update [facility].
--- NOTE | 2018-05-15 12:30 | NUR ---
Patient is supine in bed in no apparent distress. Patient awake, alert, and oriented to person, place, and time. IV line assessed and secured. Patient complains of slight abdominal pain 3/10. Patient has no other complaints or concerns at this time. Bed lowered to lowest position and call light placed within reach.
[2018-05-15 14:33] LABS: PROTHROMBIN TIME 10.8 SECONDS (9.7-12.8)
[2018-05-15 14:36] LABS: PARTIAL THROMBOPLASTIN TIME 29.7 SECONDS (26.0-37.0)
--- NOTE | 2018-05-15 14:47 | NUR ---
Kamron from OR here to take patient to the OR. All of the patient's lines have been secured, bed lowered, side rails up x4, and patient covered with blanket for transport. Patient has no complaints or concerns at this time.
--- NOTE | 2018-05-15 16:15 | NUR ---
Pt remains in OR at this time. Unable to document 1600 interventions.
--- NOTE | 2018-05-15 17:18 | NUR ---
Dr Kurtz by to check on pt but still in OR. He stated he will place a PRN cardene order to keep SBP < 160. Also encouraged to continue following detox protocol.
--- NOTE | 2018-05-15 19:00 | NUR ---
Bedside shift report given to MYKEL Davis. Patient remains in surgery at this time. MYKEL Davis has no questions or concerns at this time.
--- NOTE | 2018-05-15 19:20 | NUR ---
RECEIVED REPORT FROM MYKEL FLEMING. PATIENT WAS CURRENTLY OFF THE UNIT.
--- NOTE | 2018-05-15 19:52 | NUR ---
PT VERY AGITATED AT THIS TIME. DID NOT COMPLETE IS. WILL TRY AGAIN IN THE MORNING.
--- NOTE | 2018-05-15 20:00 | NUR ---
PATIENT CAME BACK FROM HIS PROCEDURE. PATIENT IS IN THE ROOM WITH HIS PARENTS AT THIS TIME.
[2018-05-16] VITALS (204 sets, daily range): BP systolic 113–193; BP diastolic 70–116; PULSE 70–99; TEMP 98.6–100.3; O2SAT 75–100
--- NOTE | 2018-05-16 01:48 | NUR ---
PATIENT IS CURRENTLY IN BED ASLEEP. PATIENT SEEMS TO BE RESTING PEACEFULLY.
[2018-05-16 05:16] LABS: HEMOGLOBIN 11.5 g/dl (13.5-18.0); MEAN CELL VOLUME 90 fl (80.0-100.0); MEAN CORPUSCULAR HEMOGLOBIN 31 pg (27.0-31.0); MEAN CORPUSCULAR HGB CONC 34 g/dl (33.0-37.0); MEAN PLATELET VOLUME 8.4 fl (7.4-10.4); PLATELET COUNT 312 K/mm3 (130-400); RED BLOOD COUNT 3.71 M/mm3 (4.20-5.60); REDCELL DISTRIBUTION WIDTH-CV 13.3 % (11.5-14.5)
[2018-05-16 05:27] LABS: CALCIUM 8.5 mg/dL (8.4-10.2); CREATININE, serum 0.77 (0.66-1.25); MAGNESIUM 1.7 mg/dL (1.6-2.3); PHOSPHOROUS 3.7 mg/dL (2.5-4.5); POTASSIUM 4.3 mmol/L (3.4-5.0)
[2018-05-16 05:30] LABS: HEMATOCRIT 33.4 % (42.0-52.0)
--- NOTE | 2018-05-16 05:33 | NUR ---
CALLED AND GAVE [facility] VALUE.
--- NOTE | 2018-05-16 05:35 | NUR ---
BLOOD PRESSURE ABOVE PARAMETERS IN DOCTORS ORDERS.
[2018-05-16 06:09] LABS: BAND 2 % (0-10); HYPERSEGMENTED POLYS PRESENT; LYMPHOCYTE 3 % (20.0-51.0); NEUTROPHILS 91 % (42.0-75.2); PLATELET ESTIMATE NORMAL (NORMAL)
--- NOTE | 2018-05-16 06:20 | NUR ---
BLOOD PRESSURE HIGHER THAN PHYSICIANS ORDERED PARAMETERS. INCREASED DOSAGE. WILL CONTINUE TO MONITOR.
--- NOTE | 2018-05-16 06:40 | NUR ---
PATIENTS BLOOD PRESSURE CONTINUED TO RISE. INCREASED DOSAGE PER WRITTEN ORDERS.
--- NOTE | 2018-05-16 07:15 | NUR ---
Bedside report received from MYKEL Davis. Patient awake and working on clear ensure. Cardene gtt reviewed. Plan of care discussed. Care taken over at this time.
--- NOTE | 2018-05-16 07:16 | NUR ---
GAVE REPORT TO MYKEL AGUILAR. PATIENT WAS AWAKE AND PARTICIPATED IN REPORT.
--- NOTE | 2018-05-16 08:00 | NUR ---
PATIENT IS DROWSY AND LETHARGIC TODAY. PATIENT IS ALERT AND ORIENTED TO SELF. PATIENT IS INTERMITTENTLY ORIENTED TO PLACE AND SITUATION. PATIENT AROUSES EASILY TO NAME. GENERALIZED WEAKNESS AND EDEMA NOTED. BLOOD PRESSURES LOW, OTHERWISE VSS. LUNG JOYNER DIMINISHED UPON AUSCULTATION AND SHALLOW BREATHING NOTED. PATIENT DENIES SOB OR A PRODUCTIVE COUGH. SEE ASSESSMENT FOR SKIN INTEGRITY ASSESSMENT. POSITIVE PEDAL PULSES EQUAL BILATERALLY. LEFT KNEE AQUACEL CD&I WITH KNEE IMMOBILIZER IN PLACE. SHAHID CATHETER TO DEPENDENT DRAINAGE WITH SCANT AMOUNTS OF HAZY JEOVANY URINE PRESENT IN SHAHID BAG. MIDLINE TO LUE. DIALYSIS CATHETER TO RIGHT CHEST. PATIENT OFF-LOADED FROM PRESSURE POINTS. EXTREMETIES ELEVATED. CALL LIGHT WITHIN REACH. PATIENT DENIES ANY OTHER NEEDS AT THIS TIME.
--- NOTE | 2018-05-16 13:43 | NUR ---
REPORT CALLED TO ILIA ON SURGICAL FLOOR. MYKEL FISH BRINGS PATIENT UP TO HIS NEW ROOM 347.
--- NOTE | 2018-05-16 13:55 | NUR ---
PATIENT ARRIVED TO ROOM 347 VIA WHEELCHAIR FROM ICU. PATIENT ORIENTED AND SETTELED INTO ROOM.
--- NOTE | 2018-05-16 14:30 | NUR ---
PATIENT A&O. VSS. TELE IN PLACE. BOWEL SOUNDS HYPOACTIVE ALL FOUR QUADRANTS. PATIENT TOLERATING DIET WITH SOME NAUSEA, BUT DENIES VOMITING. ABDOMINAL LOW TRANSVERSE YEFRI WITH EDGES WELL APPROXIMATED. ABDOMINAL LAP SITES X3 DRESSED WITH BANDAIDS AND ARE CD&I. POSITIVE PEDAL PULSES EQUAL BILATERALLY. SCD'S TO BLE. INT TO RIGHT FOREARM. IV FLUIDS INFUSING TO LEFT AC IV AT 75 MLS/HR. SHAHID CATHETER TO DEPENDENT DRAINAGE WITH SMALL AMOUNTS OF CLEAR PALE YELLOW URINE PRESENT IN SHAHID BAG. CALL LIGHT WITHIN REACH. PATIENT DENIES ANY NEEDS AT THIS TIME.
--- NOTE | 2018-05-16 19:00 | NUR ---
REPORT GIVEN TO MYKEL AUSTIN.
--- NOTE | 2018-05-16 19:15 | NUR ---
PT SITTING ON EDGE OF BED WITH BENT OVER WITH EMISIS RONDON IN FRONT OF HIM. PT HAS C/O INTENSE NAUSEA AND DRY HEAVES AND THE DRY HEAVES CAUSING HIM ABD PAIN. FAMILY AT BEDSIDE AT THIS TIME.
--- NOTE | 2018-05-16 20:00 | NUR ---
PT ANXIOUS, AND B/P ELEVATED. PER CIWA PROTOCOL PT SCORED HIGH ON CIWA ASSESSMENT, THIS NURSE ADMINSTERED ATIVAN ORDERED. THIS NURSE NOTIED DAHLIA SANDOVAL OF ELVATED B/P AND THAT PT JUST RECIEVED SOME ATIVAN. DAHLIA HAD THIS NURSE RECHECK VITALS AFTER 15 MINS TO SEE IF B/P REMAINED ELEVATED.
--- NOTE | 2018-05-16 20:25 | NUR ---
PT WAS ABLE TO TAKE PO MEDS EVEN THOUGH NAUSATED. NO NOTED EMEMIS BUT DOES HAVE NOTED DRY HEAVING AND HICCUPS.
--- NOTE | 2018-05-16 21:35 | NUR ---
PT HAS BEEN EXTREAMLY NAUTIOUS AND HAS BEEN DRY HEAVING. ATTEMPTED TO HAVE A BM, WITHOUT SUCESS. C/O INTENSE PAIN TO ABD THIS EVENING WELL. THIS NURSE HAS PROVIDED PRN PAIN MEDS AND ANTI-NAUSEA MEDS ABLE TO, WITHOUT MUCH RELIEF.
--- NOTE | 2018-05-16 22:30 | NUR ---
PT CALLED NURSE INTO ROOM. PT STATED THAT HE WAS STILL NAUSIOUS AND THAT HE WAS CONFUSED, STATED THAT HE THOUGHT HE "HAD A SEIZURE" PT HAD SOME NOTED CONFUSION BUT OTHERWISE SHOWED NO SIGNS OF A SEIZURE. PT WAS AWAKE AND ALERT. THIS NURSE HAD BEEN IN ROOM SEVERAL TIME THIS EVENING AND PT HADNT SHOWED SIGNS OF A SEIZURE. PT STILL SCORING ON CIWA PROTOCOL, THIS NURSE ADMINSITERED ANOTHER DOSE OF ATIVAN PER PROTOCOL. PT SEEMED COMFUSED BY STATING THAT HE SHOULDNT BE DRIVING AND TAKING OFF HIS HOSPITAL GOWN, OTHERWISE NO OTHER NOTED CHANGES IN COGNITION.
--- NOTE | 2018-05-16 23:00 | NUR ---
THIS NURSE WAS WALKING BY PT ROOM AND PEEKED INTO SEE HOW PT WAS DOING, PT LAYING IN BED A THIS TIME, FEET HANGING OFF THE BOTTOM OF THE FOOT BOARD. PT APPEARED TO BE ASLEEP.
[2018-05-17] VITALS (11 sets, daily range): BP systolic 124–185; BP diastolic 78–104; PULSE 80–97; TEMP 97.6–100.4
--- NOTE | 2018-05-17 03:01 | NUR ---
PT HAD AWOKEN AT THIS TIME. CIWA SCALE IMPROVING, PT SCORING LESS AND HAS NEEDED LESS ATIVAN THIS NOC. PT HAD C/O NAUSEA AND PAIN AT THIS TIME, PRN MEDS ADMINSTERED. PT STATED THAT HE IS TAKING NOTHING BY MOUTH TODAY.
--- NOTE | 2018-05-17 03:21 | NUR ---
THIS NURSE WENT TO REASSESS PATIENT AND PT LAYING IN BED, APPEARS TO BE SLEEPING.
[2018-05-17 06:59] LABS: BASO % 0.1 % (0.0-2.0); EOS % 0.1 % (0-4.0); GRAN # 19.8 (1.4-6.5); GRAN % 86.7 % (42.2-75.2); HEMOGLOBIN 12.6 g/dl (13.5-18.0); LYMPH # 1.5 (1.2-3.4); LYMPH % 6.6 % (20.0-51.0); MEAN CELL VOLUME 90 fl (80.0-100.0); MEAN CORPUSCULAR HEMOGLOBIN 31 pg (27.0-31.0); MEAN CORPUSCULAR HGB CONC 34 g/dl (33.0-37.0); MEAN PLATELET VOLUME 8.6 fl (7.4-10.4); MONO # 1.3 (0.1-0.6); MONO % 5.8 % (1.7-9.3); PLATELET COUNT 386 K/mm3 (130-400); RED BLOOD COUNT 4.08 M/mm3 (4.20-5.60); REDCELL DISTRIBUTION WIDTH-CV 13.2 % (11.5-14.5)
[2018-05-17 07:10] LABS: HEMATOCRIT 36.7 % (42.0-52.0)
[2018-05-17 07:12] LABS: ALBUMIN 3.1 gm/dL (3.5-5.0); BILIRUBIN,TOTAL 0.7 mg/dL (0.0-1.0); CALCIUM 8.8 mg/dL (8.4-10.2); CREATININE, serum 1.43 (0.66-1.25); POTASSIUM 3.2 mmol/L (3.4-5.0); TOTAL PROTEIN 5.6 gm/dL (6.4-8.2)
--- NOTE | 2018-05-17 08:15 | NUR ---
CRITICAL WBC RESULT OF 22.[address] TUCKER. NO ORDERS GIVEN AT THIS TIME.
--- NOTE | 2018-05-17 10:40 | NUR ---
PATIENT TAKEN DOWN FOR CT SCAN. WILL WAIT FOR PATIENT TO ARRIVE BACK TO ROOM 347.
--- NOTE | 2018-05-17 10:55 | NUR ---
PATIENT ARRIVED BACK TO ROOM 347. PATIENT SETTELED INTO ROOM.
[2018-05-17 11:26] LABS: LYMPHOCYTE 12 % (20.0-51.0); NEUTROPHILS 87 % (42.0-75.2); PLATELET ESTIMATE INCREASED (NORMAL)
--- NOTE | 2018-05-17 15:00 | NUR ---
14F NGT INSERTED. PT VOMITED MODERATE AMT OF COFFEE GROUND EMESIS DURING INSERTION AND AGAIN SHORTLY AFTER INSERTION. PT HAS 300ML OUT IMMEDIATELY AFTER INSERTION OF COFFEE GROUND EMESIS. NGT SECURED AT 75CM. NGT H0OKED UP TO LIS PER PHYSICIAN'S ORDER. PT'S LINENS AND GOWN CHANGED AFTER EMESIS. MEDCIATION PROVIDED BY ILIA HOGUE FOR NAUSEA AND PAIN.
[2018-05-17 16:55] LABS: HEMATOCRIT 30.3 % (42.0-52.0); HEMOGLOBIN 10.7 g/dl (13.5-18.0)
[2018-05-17 17:03] LABS: CREATININE, serum 1.12 (0.66-1.25); POTASSIUM 4.2 mmol/L (3.4-5.0)
--- NOTE | 2018-05-17 19:30 | NUR ---
END OF SHIFT NOTED. PATIENT A&OX4 WITH SOME FORGETFULNESS. TACHYCARDIA NOTED. PATIENT HAS HAD TEMPURATURES OFF AND ON THROUGHOUT THE DAY, VSS. TELE IN PLACE. ABDOMINAL LAP SITES X3 COVERED WITH BANDAIDS AND ARE CD&I. ABDOMINAL LOW TRANSVERSE YEFRI WITH EDGES WELL APPROXIMATED. PATIENT NAUSEATED AND DRY HEAVING THIS MORNING WITH COMPLAINTS OF ABDOMINAL PAIN AND CRAMPING. PATIENT DIET CHANGED TO NPO. NG TUBE PLACED THIS AFTERNOON TO RIGHT NARE WITH LARGE AMOUNTS OF COFFEE-GROUND EMESIS OUTPUT IN NG TUBE CANISTER. PATIENT GIVEN PRN ANTI-EMETICS THROUGHOUT SHIFT, ALTERNATING ZOFRAN WITH PHENERGAN WITH SOME RELIEF. SHAHID CATHETER TO DEPENDENT DRAINAGE WITH CLEAR JEOVANY URINE PRESENT IN BAG. 2 LOOSE BLOODY STOOLS THIS AM. REPORT GIVEN TO MYKEL ENCARNACION.
--- NOTE | 2018-05-17 21:44 | NUR ---
pt reports nausea no pain. prn meds given. no vomitting. pt NG tube is on intermediate suction- green/black coffe ground liquid noted. pt A+Ox4. pt sleeping at this time
--- NOTE | 2018-05-17 22:52 | NUR ---
pt resting in bed A+Ox4. VVS, BP elevated- scores a 8 on detox scale at this time, ativan given. tele on. abd sites x3 are covered DCI. abd low transverse incision is well approximated, no drainage. nausea reported, prn meds given. NG is placed in right nare, secured- coffee ground emesis noted on NG canister. cabrales draining independently, no kinks, secure to leg. no needs at this time call lght in reach. bed alarm on
--- NOTE | 2018-05-17 23:53 | NUR ---
pt refused IS throughout night
[2018-05-18] VITALS (12 sets, daily range): BP systolic 127–180; BP diastolic 71–104; PULSE 76–96; TEMP 97.9–99.8
--- NOTE | 2018-05-18 03:35 | NUR ---
pt pulled NG tube to 60cm this nurse advanced to 70cm- air inserted and auscultated in abd. NG is secured to nose on LIS. Coffee ground emisis noted in canister and NG tubing. PRN pain and nausea medication given for "all over and abd pain" and nausea. pt is currently sleeping but is awaken easily. pt scores a 5-7 on detox scale- ativan given as needed. IV fluids running at 100ml/hr with zosyn at 25ML/HR at this time. no redness, no swelling. bed alarm on. call light in reach
[2018-05-18 06:30] LABS: CALCIUM 7.9 mg/dL (8.4-10.2); CREATININE, serum 1.13 (0.66-1.25); POTASSIUM 4.3 mmol/L (3.4-5.0)
[2018-05-18 06:31] LABS: BASO % 0.1 % (0.0-2.0); EOS # 0.1 (0.0-0.7); EOS % 0.6 % (0-4.0); GRAN # 13.6 (1.4-6.5); GRAN % 84.6 % (42.2-75.2); LYMPH # 1.2 (1.2-3.4); LYMPH % 7.4 % (20.0-51.0); MEAN CELL VOLUME 92 fl (80.0-100.0); MEAN CORPUSCULAR HGB CONC 33 g/dl (33.0-37.0); MONO # 1.1 (0.1-0.6); MONO % 6.5 % (1.7-9.3); PLATELET COUNT 315 K/mm3 (130-400); REDCELL DISTRIBUTION WIDTH-CV 13.5 % (11.5-14.5)
[2018-05-18 06:34] LABS: HEMATOCRIT 29.4 % (42.0-52.0); HEMOGLOBIN 9.8 g/dl (13.5-18.0); MEAN CORPUSCULAR HEMOGLOBIN 31 pg (27.0-31.0)
--- NOTE | 2018-05-18 08:15 | NUR ---
pt had nausea and pain throughout night, prn meds given. scores a 3-7 on detox- ativan given as ordered. Temple draining independently, no kinks. no needs at this time. report given to MYKEL Gardner
--- NOTE | 2018-05-18 10:00 | NUR ---
Patient alert and oriented, answers questions appropriately. See assessment. NGT in place, irrigated with water, black drainage in canister noted. Abdomen soft, non distended. Bowel sounds hyperactive x4 quads. +Flatus. Has had numerous large bloody bowel movements this morning. States "All these bowel movements are wearing me out". Low transverse incision and three lap sites with edges well approximated, no drainage noted. Dr Cantrell notified of bowel movements and lab work. See orders. No other c/o at this time.
[2018-05-18 10:27] LABS: MAGNESIUM 2.1 mg/dL (1.6-2.3); PHOSPHOROUS 3.6 mg/dL (2.5-4.5)
--- NOTE | 2018-05-18 12:00 | NUR ---
Dr Ramon notified about consult.
[2018-05-18 12:26] LABS: HEMATOCRIT 25.3 % (42.0-52.0); HEMOGLOBIN 8.7 g/dl (13.5-18.0)
--- NOTE | 2018-05-18 14:15 | NUR ---
sitting up on side of bed visiting with family
[2018-05-18 15:10] LABS: PRE ALBUMIN 19.6 mg/dL (17.6-36.0)
--- NOTE | 2018-05-18 15:36 | NUR ---
FER spoke with patient's brother, Tam, via phone. Tam expressed concerns about patient returning home and not being able to care for himself at this time. Tam inquired if patient is able to go somewhere for post acute rehab after he is discharged. SW reported that it is possible as long as patient is agreeable and doctor recommends SNF. FER did report that SNF is usually not covered by Medicaid. Tam reported that patient has Medicare and Medicaid. SW reported that medicare is not in the patient's chart but she can speak with patient about obtaining his Medicare information. SW provided Tam with her phone number if he has any further questions. SW then met with patient and his mother. SW reported that she spoke with Tam and that he voices concerns with patient returning home. SW inquired if patient would be interested in post acute rehab. SW explained the difference between SNF and IPR. Patient reports he would like to think about these options and meet with SW again tomorrow morning. SW also inquired if patient had Medicare. Patient reported he did and patient's mother will bring his Medicare card to the hospital tomorrow.
--- NOTE | 2018-05-18 20:00 | NUR ---
Patient in bed, is alert and oriented x4. Has NGT to LIS with clear fluid draining. Abdomen soft, has glued lap sites and low transverse incision. Has had bloody stools during the dayshift, none so far this shift. Remains on the detox protocol, scores a 3 at this time. Has a right PICC with TPN infusing.
[2018-05-18 20:35] LABS: HEMATOCRIT 23.2 % (42.0-52.0); HEMOGLOBIN 7.9 g/dl (13.5-18.0)
--- NOTE | 2018-05-18 21:11 | NUR ---
SPOKE WITH DOE REGARDING HGB DROP. SHE WILL REVIEW CHART.
--- NOTE | 2018-05-18 23:00 | NUR ---
Patient takes Morphine 3mg IV for pain to abdomen /10. Also given dose of Zofran at 2235 for general nausea, NGT placement confirmed with irrigation bolus. Took HS meds with minimal water and NGT clamped for 30 minutes. Telemetry shows SR.
[2018-05-19] VITALS (11 sets, daily range): BP systolic 130–165; BP diastolic 69–87; PULSE 66–85; TEMP 98–99
--- NOTE | 2018-05-19 02:29 | NUR ---
New Hgb/Hct results reported to Holly MICHAELS, no new orders at this time.
--- NOTE | 2018-05-19 05:00 | NUR ---
No stools this shift. New cannister placed for NG drainage. Temple with 1100cc of yellow urine emptied. Has rested well this shift. TPN continues without redness or swelling.
[2018-05-19 06:25] LABS: HEMATOCRIT 22.8 % (42.0-52.0); HEMOGLOBIN 7.7 g/dl (13.5-18.0)
[2018-05-19 06:34] LABS: CALCIUM 7.8 mg/dL (8.4-10.2); CREATININE, serum 0.9 (0.66-1.25); MAGNESIUM 2.1 mg/dL (1.6-2.3); PHOSPHOROUS 3.2 mg/dL (2.5-4.5); POTASSIUM 3.8 mmol/L (3.4-5.0)
[2018-05-19 09:19] LABS: HEMATOCRIT 22.8 % (42.0-52.0); HEMOGLOBIN 7.7 g/dl (13.5-18.0)
[2018-05-19 09:21] LABS: MEAN CELL VOLUME 93 fl (80.0-100.0); MEAN CORPUSCULAR HEMOGLOBIN 31 pg (27.0-31.0); MEAN CORPUSCULAR HGB CONC 33 g/dl (33.0-37.0); MEAN PLATELET VOLUME 9.1 fl (7.4-10.4); PLATELET COUNT 284 K/mm3 (130-400); RED BLOOD COUNT 2.51 M/mm3 (4.20-5.60); REDCELL DISTRIBUTION WIDTH-CV 13.6 % (11.5-14.5)
[2018-05-19 09:36] LABS: BAND 3 % (0-10); EOSINOPHIL 4 % (0-4); LYMPHOCYTE 11 % (20.0-51.0); NEUTROPHILS 75 % (42.0-75.2)
[2018-05-19 09:37] LABS: PLATELET ESTIMATE NORMAL (NORMAL)
--- NOTE | 2018-05-19 11:13 | NUR ---
SW attended clinical rounds and met with patient afterwards. Patient reports he is agreeable to going to a SNF. SW will follow up with patient to complete choice form after speaking with PT. OT reports patient will likley benefit from SNF.
--- NOTE | 2018-05-19 11:27 | NUR ---
SW spoke with OT after she met with patient. She reports patient will likley only require home health services and not SNF or IPR. FER will follow up with jesusita about home health choice.
[2018-05-19 12:45] LABS: HEMATOCRIT 24.2 % (42.0-52.0); HEMOGLOBIN 8.3 g/dl (13.5-18.0)
--- NOTE | 2018-05-19 13:56 | NUR ---
Patient resting in bed. Activity encouarged, not willing to ambulate the halls at this time. Ng tube has been clamped & he has tolerated. Patient has had clear ensure, really encouarged him to take it slow. Patient was assisted with hygiene this am. Incision site edges well approximated. abdomen rounded & soft. he was up to the bathroom this am & did have a loose stool. Hospitalist & Dr. Cantrell rounded. Verified with to hold Lovenox. Prashant santo.
--- NOTE | 2018-05-19 19:10 | NUR ---
Pt resting in bed. No distress noted. Pt is drinking his CL tray without difficulty. Respirations even and unlabored. Lungs clear, but bases diminished. BS hypoactive. Abdomen soft. Pt c/o pain 7/10 in abdomen, but denies need for pain medication currently. Requesting pain medication with HS meds, as well as PRN Trazadone to help him sleep. TPN and Zosyn infusing in JOSIE PICC line. Pt reports feeling "down and depressed". Pt states he sees a case advocate with [facility] and wants to meet with them while he is in the hospital. No further needs noted at this time. Will continue to monitor.
--- NOTE | 2018-05-19 19:44 | NUR ---
Patient resting in bed. He has been more active this afternoon & evening. NG clamped, has has zofran for nausea, but taken in adequate PO clear liquids. Patient Ready for cabrales to be DC and DC per order. Picc to RUE-Tpn & antibiotic per orders. Bedside report to Haydee HOGUE
--- NOTE | 2018-05-19 20:05 | NUR ---
Lab at bedside. H&H drawn from PICC line. TPN paused for 10 minutes. Blood drawn and line flushed per policy. TPN restarted.
[2018-05-19 20:13] LABS: HEMATOCRIT 22.1 % (42.0-52.0); HEMOGLOBIN 7.6 g/dl (13.5-18.0)
--- NOTE | 2018-05-19 22:30 | NUR ---
Pt up to bathroom x2 with bloody, loose stools. Ambulated to bathroom and back to bed. Pt requested briefs. H&H decreased from previous results. Recheck in AM.
[2018-05-20 00:34] VITALS: BP 145/81; PULSE 70; TEMP 98.5
--- NOTE | 2018-05-20 00:45 | NUR ---
Pt states that he is unsure if he has voided since catheter was discontinued. Was up x2 to bathroom with loose stools this PM. Bladder scan completed showing 160mL in bladder. Will bladder scan again in AM, if no known void.
[2018-05-20 04:29] VITALS: BP 112/82; BP 12/82; PULSE 73; TEMP 98.1
--- NOTE | 2018-05-20 06:20 | NUR ---
Pt resting with HOB elevated this AM. No distress noted. Pt states that he has not gotten much sleep tonight and that he needs to see Germán Ellis urgently. Will pass this on to day shift nurse. coremaker supervisor alerted last night. Pt is still unsure if he voided last night d/t multiple loose bowel movements. Bladder scan shows 300 mL in bladder. Pt denies feeling the urge to void.
[2018-05-20 06:55] LABS: BASO % 0.1 % (0.0-2.0); EOS # 0.2 (0.0-0.7); EOS % 2.5 % (0-4.0); GRAN # 5.4 (1.4-6.5); LYMPH # 1.5 (1.2-3.4); LYMPH % 19.3 % (20.0-51.0); MEAN CELL VOLUME 90 fl (80.0-100.0); MEAN CORPUSCULAR HGB CONC 35 g/dl (33.0-37.0); MONO # 0.8 (0.1-0.6); MONO % 9.5 % (1.7-9.3); PLATELET COUNT 258 K/mm3 (130-400); RED BLOOD COUNT 2.34 M/mm3 (4.20-5.60); REDCELL DISTRIBUTION WIDTH-CV 13.4 % (11.5-14.5)
[2018-05-20 07:01] LABS: MAGNESIUM 2.1 mg/dL (1.6-2.3); PHOSPHOROUS 2.8 mg/dL (2.5-4.5)
[2018-05-20 07:02] LABS: HEMATOCRIT 21.1 % (42.0-52.0); HEMOGLOBIN 7.3 g/dl (13.5-18.0); MEAN CORPUSCULAR HEMOGLOBIN 31 pg (27.0-31.0)
[2018-05-20 08:51] VITALS: BP 157/81; PULSE 73; TEMP 98.6
[2018-05-20 09:00] LABS: POTASSIUM 3.8 mmol/L (3.4-5.0)
[2018-05-20 09:10] LABS: ALANINE AMINOTRANSFERASE 31 U/L (21-72); ALBUMIN 2.2 gm/dL (3.5-5.0); ALKALINE PHOSPHATASE 41 U/L (50-136); ANION GAP 5 mmol/L (7-16); AST,SGOT 57 U/L (15-37); BILIRUBIN,TOTAL < 0.1 mg/dL (0.0-1.0); BLOOD UREA NITROGEN 22 mg/dL (9-20); CALCIUM 7.7 mg/dL (8.4-10.2); CARBON DIOXIDE 27 mmol/L (22-30); CHLORIDE 105 mmol/L (98-107); CREATININE, serum 0.75 (0.66-1.25); GLUCOSE 79 mg/dL (74-106); SODIUM 136 mmol/L (137-145); TOTAL PROTEIN 4.4 gm/dL (6.4-8.2)
--- NOTE | 2018-05-20 09:45 | NUR ---
Patient resting in bed. Drinking clear liquids. Hospitalist team rounded. He reports nausea, zofran per orders. Patient reports bloody stools over night. His H&H has dropped, patient does report lightheadedness when up. Abdomen ,soft bowels audible. Incision site edges well approximated. He reports voiding adequately since cabrales removal. Scds. Will monitor.
--- NOTE | 2018-05-20 11:40 | NUR ---
SW spoke with patient mother, Zaida, this morning. She expressed concerns about patient going home and no being able to care for himself. She reports in the past he has not been able to keep his apartment clean and he has had a drinking problem in the past. Zaida reports that patient is only concerned with getting well enough to be ablet to go home but she is concerned that that discharge plan is not a safe option. She also reports that she has spoken with him about this but he does not listen to her. SW reported that she will voice these concerns to patient. SW met with patient and his father about the above. Patient is very reluctant to go to a longterm facility afte he is discharged because he wants to go back to his apartment. SW reported that some of his family members have voiced concerns about him not being able to properly care for himself at home. Patient reports he will think about SNF. SW will follow up with patient in the morning.
[2018-05-20 12:38] VITALS: BP 128/68; PULSE 76; TEMP 98.8
--- NOTE | 2018-05-20 12:42 | NUR ---
NG TUBE REMOVED PER ORDERS. PATIENT TOLERATED WELL. HE IS REALLY HOPING FOR FULL LIQUIDS FOR LUNCH. DR.WOLFE LUONG
--- NOTE | 2018-05-20 15:57 | NUR ---
FER spoke with Chaparrita, director of case mgmt, about patient's case. Chaparrita inquired if patient would be a good candidate for [facility]. FER spoke with Omar from [facility] and fac a referral. Omar reports patient is a good candidate and he would be able to admit patient on Friday. FER also spoke with Dr Cantrell and Dr Todd and they are both agreeable to this plan. FER then spoke with patient and his mother about [facility]. Patient is open to this plan but would like to think about it. FER reported that both Dr Cantrell and Dr Todd think going to [facility] is a good option for patient. FER also reported that Omar from [facility] will come visit patient and parents to answer any questions they might have.
[2018-05-20 15:58] VITALS: BP 132/71; PULSE 77; TEMP 99.3
--- NOTE | 2018-05-20 19:27 | NUR ---
Patient resting in bed. His supportive mother at bedside. Patient very irritated/frustrated about the conversation social work had wih [facility]. He does not want to leave this hospital. I tried to reassure patient. Tpn via picc line. He has tolerated full liquids and had no complaints about nausea since NG removed. He did have one loose stool dark this afternoon. Patient has been very anxious this evening. Did given a dose of PRN ativan Per detox protocol. Bedside report to Lizeth HOGUE
[2018-05-20 20:00] VITALS: BP 149/73; PULSE 78; TEMP 98.3
[2018-05-21] VITALS: BP 152/83; PULSE 69; TEMP 98.4
[2018-05-21 04:00] VITALS: BP 160/84; PULSE 76; TEMP 98.4
--- NOTE | 2018-05-21 05:09 | NUR ---
HAS RESTED WELL THROUGH THE NIGHT. DENIES PAIN AT THIS TIME. TPN STOPPED AT THIS TIME FOR BLOOD DRAW BY LAB. WILL CONTINUE TO MONITOR.
[2018-05-21 06:57] LABS: BASO % 0.1 % (0.0-2.0); EOS # 0.2 (0.0-0.7); EOS % 2.6 % (0-4.0); GRAN # 6.3 (1.4-6.5); GRAN % 70.3 % (42.2-75.2); LYMPH # 1.5 (1.2-3.4); LYMPH % 17.1 % (20.0-51.0); MEAN CELL VOLUME 92 fl (80.0-100.0); MEAN CORPUSCULAR HGB CONC 34 g/dl (33.0-37.0); MEAN PLATELET VOLUME 8.7 fl (7.4-10.4); MONO # 0.8 (0.1-0.6); MONO % 8.7 % (1.7-9.3); PLATELET COUNT 261 K/mm3 (130-400); RED BLOOD COUNT 2.33 M/mm3 (4.20-5.60); REDCELL DISTRIBUTION WIDTH-CV 13.3 % (11.5-14.5)
[2018-05-21 07:01] LABS: HEMATOCRIT 21.5 % (42.0-52.0); HEMOGLOBIN 7.3 g/dl (13.5-18.0); MEAN CORPUSCULAR HEMOGLOBIN 31 pg (27.0-31.0)
[2018-05-21 07:06] LABS: CALCIUM 7.9 mg/dL (8.4-10.2); CREATININE, serum 0.67 (0.66-1.25); MAGNESIUM 2.2 mg/dL (1.6-2.3); PHOSPHOROUS 3.4 mg/dL (2.5-4.5); POTASSIUM 4.3 mmol/L (3.4-5.0)
[2018-05-21 07:43] VITALS: BP 152/75; PULSE 70; TEMP 98.8
--- NOTE | 2018-05-21 10:46 | NUR ---
Patient alert and oriented, answers questions appropriately. See assessment. Abdomen soft, non tender, non distended. Bowel sounds hyperactive x4 quads. +Flatus. Low transverse and lap sites x3 with edges well approximated, no drainage noted. Patient reports continued bloody stools, but considerably less than previous days. Patient has numerous questions about [facility], attempted to answer, refered to social work faculty member. No other c/o at this time.
--- NOTE | 2018-05-21 10:51 | NUR ---
FER rec'd a call from Omar with [facility] and he reports that patient's mom contacted him last night and asked him not to come visit patient. Omar reported that patient wants to speak with the doctors first and specifically his primry care doctor. FER reported all of this to the hospitalist and nurse. FER then attended clinical rounds. Doctor explained the difference between [facility] and a fdc facility because patient mentioned going to [facility] for rehab. Doctor reported that PT and OT have said patient does not need skilled rehab because he is working well with both PT and OT. Patient reported he would feel more comfortable going home with home health services now that TPN is discontinued and his diet has been advanced. FER then contacted patient's mother via phone. She reports that patient feels more comforable staying in this hospital for a few more days instead of moving to another hospital ([facility]) where does not know anyone and he is away from his local doctors. FER reported we cannot make patient go/do anything or anywhere he doesn't want to and every recommendation is made in the best interest of the patient. FER will follow up with patient this afternoon about discharge plan.
--- NOTE | 2018-05-21 11:35 | NUR ---
SW followed up with patient about discharge plan. Patient reported again that he does not want to go to another hospital and when he is discharged, he would like to go home and receive home health services through [facility]. FER will fax a referral to [facility].
[2018-05-21 12:33] VITALS: BP 135/75; PULSE 81; TEMP 98.6
--- NOTE | 2018-05-21 13:48 | NUR ---
Pt laying in bed at this time relaxed and breathing is even and nonlabored. Pain is under control at this time. Pt. denies any further needs.
[2018-05-21 16:34] VITALS: BP 126/90; PULSE 75; TEMP 98.7
--- NOTE | 2018-05-21 19:53 | NUR ---
Patient sitting up in bed eating dinner. Reports some pain/nausea. Given zofran for nausea and ultram for pain. Reports some dizziness when getting up too fast- reinforced that if patient feels this way and needs to ambulate to restroom to notify nurse for assistance. Assessment completed- incision and lap sites well aproximated, clean. Lungs clear, abdominal sounds active, pulses +3, cap refil <3 seconds. Requesting ativan for sleep when bringing in 2300 medications. No further needs at this time.
[2018-05-21 20:00] VITALS: BP 150/73; PULSE 77; TEMP 99.6
[2018-05-22] VITALS: BP 133/68; PULSE 68; TEMP 98.8
[2018-05-22 04:00] VITALS: BP 160/90; PULSE 78; TEMP 98.1
--- NOTE | 2018-05-22 05:15 | NUR ---
Pt slept for a few hours last night. Appears somewhat anxious about discharge today- would like to discuss with doctors during rounds today. Worried about discharging with hemaglobin being low. Will pass on to day nurse.
[2018-05-22 06:32] LABS: MEAN CELL VOLUME 92 fl (80.0-100.0); MEAN CORPUSCULAR HGB CONC 34 g/dl (33.0-37.0); MEAN PLATELET VOLUME 8.7 fl (7.4-10.4); PLATELET COUNT 302 K/mm3 (130-400); RED BLOOD COUNT 2.36 M/mm3 (4.20-5.60); REDCELL DISTRIBUTION WIDTH-CV 13.6 % (11.5-14.5)
[2018-05-22 06:33] LABS: HEMATOCRIT 21.8 % (42.0-52.0); HEMOGLOBIN 7.5 g/dl (13.5-18.0); MEAN CORPUSCULAR HEMOGLOBIN 32 pg (27.0-31.0)
[2018-05-22 06:44] LABS: CALCIUM 8.3 mg/dL (8.4-10.2); CREATININE, serum 0.8 (0.66-1.25); MAGNESIUM 2.1 mg/dL (1.6-2.3); PHOSPHOROUS 4.2 mg/dL (2.5-4.5); POTASSIUM 4.2 mmol/L (3.4-5.0)
--- NOTE | 2018-05-22 07:28 | NUR ---
REPORT GIVEN TO MYKEL HARMAN. pATIENT ASLEEP IN ROOM
[2018-05-22 07:34] VITALS: BP 135/81; PULSE 55; TEMP 98.4
[2018-05-22 07:34] LABS: EOSINOPHIL 3 % (0-4); LYMPHOCYTE 25 % (20.0-51.0); MYELOCYTE 1 % (0-0); NEUTROPHILS 69 % (42.0-75.2); PLATELET ESTIMATE NORMAL (NORMAL)
--- NOTE | 2018-05-22 08:26 | NUR ---
Patient sitting up in bed. Breakfast ordered. Patient reports trying to increase po intake. He is very anxious.nervous about discharge. Picc to RUE int. Incision edges well approximated.
[2018-05-22] MEDS ORDERED: ROXICODONE 55 MG/TAB PO (08:36)
[2018-05-22] MEDS ORDERED: PREDNISONE20 MG PO (08:40)
[2018-05-22] MEDS ORDERED: THIAMINE 1100 MG/TAB PO (08:40)
[2018-05-22] MEDS ORDERED: FOLIC ACID 11 MG/TA1 PO (08:40)
[2018-05-22] MEDS ORDERED: ZOFRAN ODT4 MG PO (08:41)
[2018-05-22] MEDS ORDERED: PREDNISONE10 MG PO (09:20)
[2018-05-22] MEDS ORDERED: FERROUS SU325 MG/TAB PO (09:20)
--- NOTE | 2018-05-22 09:55 | NUR ---
FER attended clinical rounds. Patient will discharge today with [facility] (PT, OT, Prison, and Social Work). FER presented IM to patient. He signed and was provided a copy. FER also contacted patient's mother and informed her of discharge. FER will fax discharge orders once they're completed,
--- NOTE | 2018-05-22 11:55 | NUR ---
Patient sitting up in bed. Elevated blood sugar result reported to Susan PEREYRA, will recheck. Reviewed with patient home health plan of care
[2018-05-22 12:06] VITALS: BP 119/64; PULSE 72; TEMP 99
--- NOTE | 2018-05-22 13:36 | NUR ---
Pt continues to express concerns about being discharged and not being able to drive. Pt spoke with home health services about these concerns. Pt ordering late lunch. Pt states mom will be coming to pick him up when discharged.
--- NOTE | 2018-05-22 16:51 | NUR ---
Patient ready for discharge. His parents here to take him home. Tried to Review all discharge paperwork with patient, but I am not sure that he was listening or concentrating on the discharge paperwork. I discussed that scripts he need to get filled & medication list. We reviewed follow up appt & H&H check. Patient did discharge with a PICC line. Home health to see patient
== END 2018-05-22 16:55 | disposition home health service (06) | DRG 330 ==
LOC: ICU 05-13 09:41 → INPTSU 05-13 09:41 → SURG 05-13 09:41 → ICU 05-13 20:00 → SURG 05-16 12:51
PROVIDERS: Internal Medicine; Physician Assistant; ADMIT Surgery
PROC: 8E0W4CZ Robotic Assisted Procedure of Trunk Region, Percutaneous Endoscopic Approach (ICD-10-PCS; 2018-05-15)
PROC: 0DTH4ZZ Resection of Cecum, Percutaneous Endoscopic Approach (ICD-10-PCS; principal; 2018-05-15 14:00)
DX: K50.012 Crohn's disease of small intestine with intestinal obstruction (principal); N17.9 Acute kidney failure, unspecified; E87.1 Hypo-osmolality and hyponatremia; K56.7 Ileus, unspecified; K92.1 Melena; E44.0 Moderate protein-calorie malnutrition; E86.0 Dehydration; I10 Essential (primary) hypertension; F90.9 Attention-deficit hyperactivity disorder, unspecified type; F10.10 Alcohol abuse, uncomplicated; I95.9 Hypotension, unspecified; F17.210 Nicotine dependence, cigarettes, uncomplicated; D50.0 Iron deficiency anemia secondary to blood loss (chronic); Z68.22 Body mass index [BMI] 22.0-22.9, adult
CPT/HCPCS: 99223; 99232-AI; 99233-AI; A4217; A4314; A9284; C1751; C9113; J0330; J0610; J0690; J1100; J1170; J1650; J1815; J2060; J2270; J2405; J2543; J2550; J2704; J2710; J2765; J3010; J3475; J3480; J7030; J7050; J7120; J7131; J7512

== ENCOUNTER 2018-05-26 20:14 | Emergency (ER) | payer MEDICAID ==
[~2018-05-26] VITALS: Ht 182.9 cm; Wt 68.2 kg
[~2018-05-26 20:14] MED LIST changes: +COLACE 100100 MG/CAP PO; +FERROUS SU325 MG/TAB PO; +FLAGYL500 MG PO; +FOLIC ACID 11 MG/TA1 PO; +MULTI VITAMINS1 TAB PO; +ROXICODONE 55 MG/TAB PO; +STRATTERA 10MG10 MG; +THIAMINE 1100 MG/TAB PO; +TOPROL XL 50MG50 MG PO
[2018-05-26 20:18] VITALS: TEMP 99.7
[2018-05-26 20:56] LABS: BASO % 0.1 % (0.0-2.0); EOS # 0.2 (0.0-0.7); GRAN # 6.2 (1.4-6.5); GRAN % 66.2 % (42.2-75.2); LYMPH # 2.2 (1.2-3.4); LYMPH % 23.5 % (20.0-51.0); MEAN CELL VOLUME 91 fl (80.0-100.0); MEAN CORPUSCULAR HGB CONC 34 g/dl (33.0-37.0); MONO # 0.6 (0.1-0.6); MONO % 6.9 % (1.7-9.3); PLATELET COUNT 485 K/mm3 (130-400); REDCELL DISTRIBUTION WIDTH-CV 14.1 % (11.5-14.5)
[2018-05-26 20:58] LABS: HEMATOCRIT 29.2 % (42.0-52.0); HEMOGLOBIN 9.9 g/dl (13.5-18.0); MEAN CORPUSCULAR HEMOGLOBIN 31 pg (27.0-31.0)
[2018-05-26 21:13] LABS: ALBUMIN 3.6 gm/dL (3.5-5.0); BILIRUBIN,TOTAL 0.3 mg/dL (0.0-1.0); C-REACTIVE PROTEIN 0.9 mg/dL (0.0-0.9); CALCIUM 9.1 mg/dL (8.4-10.2); CREATININE, serum 1.24 (0.66-1.25); POTASSIUM 4.3 mmol/L (3.4-5.0); TOTAL PROTEIN 6.4 gm/dL (6.4-8.2)
[2018-05-27 01:12] VITALS: BP 139/82; PULSE 71
== END 2018-05-27 01:15 | disposition home or self-care (01) ==
LOC: COL.ER 20:14
PROVIDERS: Emergency Medicine
DX: R06.02 Shortness of breath (principal); D64.9 Anemia, unspecified; Z79.51 Long term (current) use of inhaled steroids; Z87.19 Personal history of other diseases of the digestive system; Z98.890 Other specified postprocedural states
CPT/HCPCS: J2270; J7030; Q9967

== ENCOUNTER → 2018-06-30 | Outpatient (CLI) | payer MEDICARE, MEDICAID | LOC: COL.RAD 10:51 | DX: K56.609 Unspecified intestinal obstruction, unspecified as to partial versus complete obstruction (principal); K50.90 Crohn's disease, unspecified, without complications | CPT/HCPCS: Q9967 ==

== ENCOUNTER 2018-12-05 16:29 | Emergency (ER) | payer MEDICARE, MEDICAID ==
[~2018-12-05] VITALS: Ht 182.9 cm; Wt 68.2 kg
[2018-12-05 17:18] VITALS: TEMP 98.8
[2018-12-05 18:38] LABS: BASO # 0.1 (0.0-0.2); BASO % 0.5 % (0.0-2.0); EOS # 0.1 (0.0-0.7); EOS % 0.7 % (0-4.0); GRAN # 9.4 (1.4-6.5); GRAN % 84.9 % (42.2-75.2); HEMATOCRIT 39.6 % (42.0-52.0); HEMOGLOBIN 13.3 g/dl (13.5-18.0); LYMPH # 0.7 (1.2-3.4); LYMPH % 6.3 % (20.0-51.0); MEAN CELL VOLUME 86 fl (80.0-100.0); MEAN CORPUSCULAR HEMOGLOBIN 29 pg (27.0-31.0); MEAN CORPUSCULAR HGB CONC 34 g/dl (33.0-37.0); MONO # 0.8 (0.1-0.6); MONO % 7.2 % (1.7-9.3); PLATELET COUNT 317 K/mm3 (130-400); RED BLOOD COUNT 4.62 M/mm3 (4.20-5.60)
[2018-12-05 18:49] LABS: ALBUMIN 4.1 gm/dL (3.5-5.0); BILIRUBIN,TOTAL 0.5 mg/dL (0.0-1.0); C-REACTIVE PROTEIN 1.3 mg/dL (0.0-0.9); CALCIUM 9.2 mg/dL (8.4-10.2); CREATININE, serum 0.86 (0.66-1.25); POTASSIUM 4.3 mmol/L (3.4-5.0); TOTAL PROTEIN 7.4 gm/dL (6.4-8.2)
[2018-12-05] MEDS ORDERED: ZOFRAN 4MG T4 MG/TAB PO (19:45)
[2018-12-05 20:20] VITALS: BP 140/80; PULSE 85
== END 2018-12-05 20:21 | disposition home or self-care (01) ==
LOC: COL.ER 16:29
PROVIDERS: Emergency Medicine
DX: K50.90 Crohn's disease, unspecified, without complications (principal); K59.00 Constipation, unspecified; I10 Essential (primary) hypertension; Z90.49 Acquired absence of other specified parts of digestive tract
CPT/HCPCS: J2405; J7030

== ENCOUNTER 2019-03-30 17:04 | Emergency (ER) | payer MEDICARE, MEDICAID ==
[~2019-03-30] VITALS: Ht 182.9 cm; Wt 68.2 kg
[~2019-03-30 17:04] MED LIST changes: +BUSPAR10 MG PO; +COLESTID 1GM1 G PO; +PROTONIX 40MG T40 MG PO; +ZOFRAN 4MG T4 MG/TAB PO
[2019-03-30 17:26] VITALS: BP 146/82; TEMP 98.9
[2019-03-30 19:39] LABS: BASO # 0.1 (0.0-0.2); BASO % 0.6 % (0.0-2.0); EOS # 0.2 (0.0-0.7); EOS % 1.8 % (0-4.0); GRAN # 5.8 (1.4-6.5); GRAN % 69.2 % (42.2-75.2); HEMATOCRIT 37.6 % (42.0-52.0); HEMOGLOBIN 12.3 g/dl (13.5-18.0); LYMPH # 1.2 (1.2-3.4); MEAN CELL VOLUME 82 fl (80.0-100.0); MEAN CORPUSCULAR HEMOGLOBIN 27 pg (27.0-31.0); MEAN CORPUSCULAR HGB CONC 33 g/dl (33.0-37.0); MEAN PLATELET VOLUME 7.8 fl (7.4-10.4); MONO # 1.2 (0.1-0.6); MONO % 13.9 % (1.7-9.3); PLATELET COUNT 438 K/mm3 (130-400); RED BLOOD COUNT 4.61 M/mm3 (4.20-5.60); REDCELL DISTRIBUTION WIDTH-CV 14.9 % (11.5-14.5)
[2019-03-30 19:50] LABS: ALBUMIN 4.3 gm/dL (3.5-5.0); C-REACTIVE PROTEIN 2.4 mg/dL (0.0-0.9); CALCIUM 9.4 mg/dL (8.4-10.2); CREATININE, serum 1.22 (0.66-1.25); POTASSIUM 4.1 mmol/L (3.4-5.0); TOTAL PROTEIN 7.8 gm/dL (6.4-8.2)
[2019-03-30 19:59] LABS: TROPONIN-I 0.021 ng/mL (0.000-0.035)
[2019-03-30] MEDS ORDERED: FLAGYL500 MG PO (21:15)
[2019-03-30] MEDS ORDERED: PREDNISONE20 MG PO (21:15)
[2019-03-30] MEDS ORDERED: CIPRO 500MG TA500 MG PO (21:15)
[2019-03-30 21:33] VITALS: PULSE 85
== END 2019-03-30 21:33 | disposition home or self-care (01) ==
LOC: COL.ER 17:04
PROVIDERS: Emergency Medicine
DX: K50.90 Crohn's disease, unspecified, without complications (principal); I10 Essential (primary) hypertension; Z79.52 Long term (current) use of systemic steroids
CPT/HCPCS: J2405; J3010; J7030; J7512

== ENCOUNTER → 2019-08-03 | Outpatient (CLI) | payer MEDICARE, MEDICAID ==
[~2019-08-03] MED LIST changes: +CIPRO 500MG TA500 MG PO
== END ==
LOC: COL.RAD 08:58
DX: K50.90 Crohn's disease, unspecified, without complications (principal); K63.89 Other specified diseases of intestine; N32.89 Other specified disorders of bladder
CPT/HCPCS: Q9967

== ENCOUNTER 2019-09-05 13:22 | Emergency (ER) | payer MEDICARE, MEDICAID ==
[~2019-09-05] VITALS: Ht 172.7 cm; Wt 68.2 kg
[2019-09-05 13:32] VITALS: TEMP 97.2
[2019-09-05 14:12] LABS: BASO % 0.2 % (0.0-2.0); EOS % 0.5 % (0-4.0); GRAN # 7.6 (1.4-6.5); GRAN % 87.9 % (42.2-75.2); HEMATOCRIT 38.1 % (42.0-52.0); HEMOGLOBIN 13.4 g/dl (13.5-18.0); LYMPH # 0.5 (1.2-3.4); LYMPH % 5.7 % (20.0-51.0); MEAN CELL VOLUME 87 fl (80.0-100.0); MEAN CORPUSCULAR HEMOGLOBIN 31 pg (27.0-31.0); MEAN CORPUSCULAR HGB CONC 35 g/dl (33.0-37.0); MEAN PLATELET VOLUME 8.2 fl (7.4-10.4); MONO # 0.4 (0.1-0.6); PLATELET COUNT 334 K/mm3 (130-400); RED BLOOD COUNT 4.37 M/mm3 (4.20-5.60); REDCELL DISTRIBUTION WIDTH-CV 13.8 % (11.5-14.5)
[2019-09-05 14:16] LABS: ALANINE AMINOTRANSFERASE 18 U/L (4-49); ALBUMIN 4.1 gm/dL (3.5-5.0); ALKALINE PHOSPHATASE 173 U/L (50-136); ANION GAP 8 mmol/L (7-16); AST,SGOT 34 U/L (15-37); BILIRUBIN,TOTAL 1.1 mg/dL (0.0-1.0); BLOOD UREA NITROGEN 12 mg/dL (9-20); CALCIUM 9.3 mg/dL (8.4-10.2); CARBON DIOXIDE 26 mmol/L (22-30); CHLORIDE 93 mmol/L (98-107); CREATININE, serum 1.66 (0.66-1.25); GLUCOSE 108 mg/dL (74-106); LIPASE 183 U/L (23-300); POTASSIUM 4.2 mmol/L (3.4-5.0); SODIUM 126 mmol/L (137-145); TOTAL PROTEIN 7.4 gm/dL (6.4-8.2)
[2019-09-05 14:27] LABS: PROTHROMBIN TIME 10.8 SECONDS (9.7-12.8)
[2019-09-05 14:30] LABS: TROPONIN-I < 0.012 ng/mL (0.000-0.035)
[2019-09-05 17:28] LABS: ANION GAP 5 mmol/L (7-16); BLOOD UREA NITROGEN 10 mg/dL (9-20); CALCIUM 8.5 mg/dL (8.4-10.2); CARBON DIOXIDE 26 mmol/L (22-30); CHLORIDE 97 mmol/L (98-107); CREATININE, serum 1.38 (0.66-1.25); GLUCOSE 156 mg/dL (74-106); POTASSIUM 4.2 mmol/L (3.4-5.0); SODIUM 128 mmol/L (137-145)
[2019-09-05 17:40] LABS: TROPONIN-I 3 HR POST INITIAL < 0.012 ng/mL (0.000-0.034)
[2019-09-05] MEDS ORDERED: ZOFRAN ODT4 MG PO (18:37)
[2019-09-05 18:54] VITALS: BP 159/92; PULSE 85
== END 2019-09-05 18:54 | disposition home or self-care (01) ==
LOC: COL.ER 13:22
PROVIDERS: Emergency Medicine
DX: R10.9 Unspecified abdominal pain (principal); R11.10 Vomiting, unspecified; R19.7 Diarrhea, unspecified; R07.1 Chest pain on breathing; J44.9 Chronic obstructive pulmonary disease, unspecified; I10 Essential (primary) hypertension; Z79.52 Long term (current) use of systemic steroids; Z79.51 Long term (current) use of inhaled steroids; Z88.6 Allergy status to analgesic agent; Z90.49 Acquired absence of other specified parts of digestive tract
CPT/HCPCS: J2405; J2550; J7030; Q9967

== ENCOUNTER 2019-09-10 17:10 | Inpatient (IN) | payer MEDICARE, MEDICAID ==
[~2019-09-10] VITALS: Ht 182.9 cm; Wt 74.3 kg
[2019-09-10 18:31] LABS: HEMOGLOBIN 14.5 g/dl (13.5-18.0); MEAN CELL VOLUME 88 fl (80.0-100.0); MEAN CORPUSCULAR HEMOGLOBIN 30 pg (27.0-31.0); MEAN CORPUSCULAR HGB CONC 35 g/dl (33.0-37.0); MEAN PLATELET VOLUME 8.1 fl (7.4-10.4); PLATELET COUNT 305 K/mm3 (130-400); RED BLOOD COUNT 4.78 M/mm3 (4.20-5.60); REDCELL DISTRIBUTION WIDTH-CV 13.7 % (11.5-14.5)
[2019-09-10 18:35] LABS: ALANINE AMINOTRANSFERASE 24 U/L (4-49); ALBUMIN 4.6 gm/dL (3.5-5.0); ALKALINE PHOSPHATASE 187 U/L (50-136); ANION GAP 11 mmol/L (7-16); AST,SGOT 39 U/L (15-37); BLOOD UREA NITROGEN 9 mg/dL (9-20); C-REACTIVE PROTEIN 0.8 mg/dL (0.0-0.9); CALCIUM 9.7 mg/dL (8.4-10.2); CARBON DIOXIDE 27 mmol/L (22-30); CHLORIDE 94 mmol/L (98-107); CREATININE, serum 0.91 (0.66-1.25); GLUCOSE 171 mg/dL (74-106); LIPASE 67 U/L (23-300); POTASSIUM 4.4 mmol/L (3.4-5.0); SODIUM 131 mmol/L (137-145); TOTAL PROTEIN 8.4 gm/dL (6.4-8.2)
[2019-09-10 18:45] LABS: TROPONIN-I < 0.012 ng/mL (0.000-0.035)
[2019-09-10] MEDS ORDERED: PREDNISONE 5MG5 MG PO ×2 (19:08→19:09)
[2019-09-10 19:10] LABS: LYMPHOCYTE 3 % (20.0-51.0); NEUTROPHILS 97 % (42.0-75.2); PLATELET ESTIMATE NORMAL (NORMAL)
[2019-09-10] MEDS ORDERED: METHOTREXA2.5 MG/TAB PO (19:10)
[2019-09-10] MEDS ORDERED: NITROSTAT0.4 MG/TAB SL (19:11)
[2019-09-10] MEDS ORDERED: ASPIRIN 81M81 MG/TA2 PO (19:12)
[2019-09-10] MEDS ORDERED: VENTOLIN0.09 MG IH (19:13)
[2019-09-10] MEDS ORDERED: PROCTOZONE-HC2.5% RC (19:15)
[2019-09-10] MEDS ORDERED: CARAFATE S1 GM/10 ML PO (19:17)
[2019-09-10] MEDS ORDERED: CARAFATE 1GM1 G PO (19:17)
[2019-09-10] MEDS ORDERED: COLESTID 1GM1 G PO (19:19)
[2019-09-10 20:11] LABS: COLLECTION METHOD CLEAN CATCH
[2019-09-10 20:19] LABS: MUCOUS Present /lpf; PH 7 (5-8); SQUAMOUS EPITHELIAL None Seen /hpf; URINE APPEARANCE Clear; URINE BACTERIA None Seen /hpf; URINE BILIRUBIN Negative (NEGATIVE); URINE BLOOD 2+ (NEGATIVE); URINE COLOR Yellow; URINE GLUCOSE 1+ (NEGATIVE); URINE KETONE 1+ (NEGATIVE); URINE LEUKOCYTE ESTERASE Negative (NEGATIVE); URINE NITRATE Negative (NEGATIVE); URINE PROTEIN(semi-quant) Negative (NEGATIVE); URINE UROBILINOGEN Negative (NEGATIVE)
[2019-09-10 23:57] VITALS: O2SAT 98
[2019-09-10 23:58] VITALS: O2SAT 98
[2019-09-11] VITALS (461 sets, daily range): BP systolic 128–190; BP diastolic 83–115; PULSE 62–90; TEMP 97.9–98.7; O2SAT 74–100
--- NOTE | 2019-09-11 00:21 | NUR ---
Arrived to the unit via wheelchair. Ambulates independenly in room. Attached to all monitors. Assessment completed; all quesions and concerns addressed at this time. Will continue to monitor.
[2019-09-11] MEDS ORDERED: ZOFRAN8 MG PO (04:23)
[2019-09-11 07:39] LABS: HEMATOCRIT 38.3 % (42.0-52.0); HEMOGLOBIN 13.4 g/dl (13.5-18.0); MEAN CELL VOLUME 89 fl (80.0-100.0); MEAN CORPUSCULAR HEMOGLOBIN 31 pg (27.0-31.0); MEAN CORPUSCULAR HGB CONC 35 g/dl (33.0-37.0); MEAN PLATELET VOLUME 8.7 fl (7.4-10.4); PLATELET COUNT 299 K/mm3 (130-400); REDCELL DISTRIBUTION WIDTH-CV 14.3 % (11.5-14.5)
[2019-09-11 07:48] LABS: ANION GAP 5 mmol/L (7-16); BLOOD UREA NITROGEN 8 mg/dL (9-20); CALCIUM 8.9 mg/dL (8.4-10.2); CARBON DIOXIDE 25 mmol/L (22-30); CHLORIDE 104 mmol/L (98-107); CHOLESTEROL 228 mg/dL (120-200); GLUCOSE 151 mg/dL (74-106); LDL CHOLESTEROL 107 mg/dL; SODIUM 134 mmol/L (137-145); TRIGLYCERIDE 54 mg/dL
[2019-09-11 07:52] LABS: TROPONIN-I < 0.012 ng/mL (0.000-0.035)
[2019-09-11 07:55] LABS: HDL CHOLESTEROL 133 mg/dL
--- NOTE | 2019-09-11 08:58 | NUR ---
MD Edwina in room with pt. Plan: Pt has scheduled LexiScan with MD Denis this week, hold off on Friday's scheduled EGD until after Cardiac clearance
[2019-09-11 09:00] LABS: BAND 2 % (0-10); LYMPHOCYTE 2 % (20.0-51.0); NEUTROPHILS 96 % (42.0-75.2); PLATELET ESTIMATE NORMAL (NORMAL)
--- NOTE | 2019-09-11 13:26 | NUR ---
Plan: Plan to return home with support of his father Jose and also EMR contact [phone]. Assessment: SW met with patient about care plan. Patient reports that he resides in his appratment alone. Pateint indicated that he has parents and friends that would be of assistance if he needed it. Patient reports that he has chromes' and that it is becoming more difficult for him. Patient reports that he does not have any [facility] set up but is working with [facility] on a regular. Patient reports that Dr. Pearl is pcp and he obtains is medications from [facility] without difficulty. Patient denies any care concerns. Action: Offered home health referral/declined, educated patient on supports and services in community. Father to transport home. Will continue to follow for any care needs.
[2019-09-12] VITALS (9 sets, daily range): BP systolic 127–190; BP diastolic 69–99; PULSE 69–88; TEMP 97.4–98.8
--- NOTE | 2019-09-12 04:43 | NUR ---
Pt transfer procedure completed, alert, oriented, roomair, independent. Meds provided as per MAR, tolerated well. Meds provided as per MAR, tolerated well. No V/D, tingling, numbness, pain, SOA as per pt. Helped to settled down on bed, call light on reach. No further needs at this time.
--- NOTE | 2019-09-12 06:30 | NUR ---
Pt had blood pressure 190/107 around 2330, hydralazine given as per APR. Pt slept on and off through out the night. Morning meds provided, tolerated well. Morning BP on 160/85. No further needs at this time.
--- NOTE | 2019-09-12 09:06 | NUR ---
Pt assessment completed and charted, medications administered per APR. Pt A&O, independent in room. Pt on room air, denies SOB, breathing is even and unlabored. Pt denies chest pain, dizziness, vomiting or diarrhea. Pt requested zofran prior to eating. Breakfast delivered, denies abd pain at this time, "we will see how breakfast goes" per pt. RH INT IV flushes w/o difficulty. BP elevated, received meds per apr. no hydralazine administered at this time. Will continue to monitor. No needs expressed at this time.
--- NOTE | 2019-09-12 14:09 | NUR ---
This nurse notified Dr. Bland about elevated BP overnight w/ patient, receiving PRN hydralazine, has been coming down. Hospitalist increasing Edwina doss ok with that. Lexiscan not scheduled for Friday anymore. Hospitalist notified, will also notify Yenny.
--- NOTE | 2019-09-12 19:34 | NUR ---
Pt requesting pain mediction, PRN fentanyl given per APR. No further needs expressed.
[2019-09-13] VITALS (15 sets, daily range): BP systolic 147–186; BP diastolic 77–96; PULSE 70–796; TEMP 97.8–98.2
--- NOTE | 2019-09-13 04:55 | NUR ---
PATIENT HAS HAD AN UNEVENTFUL NIGHT. PATIENT GOT SOME NAUSEA MEDICATION AT HS AND THEN HAS BEEN ABLE TO SLEEP THROUGH THE NIGHT. PATIENT HAS NOT REPORT ANY PAIN. PATIENT HAS BEEN NPO SINCE MIDNIGHT FOR AN EGD THIS MORNING. PATIENT HAS NOT REQUIRD ANY HYDRALAZINE FOR ME THROUGH THE SHIFT. DENIES ANY OTHER NEEDS. WILL REPORT OFF TO DAYS
--- NOTE | 2019-09-13 08:30 | NUR ---
PT TRANSFERED TO PRE FOR EGD @ 0830. NURSE MADE AWARE OF HIGH BP AND ADMINISTERED 10MG HYDRALAZINE. PT DENIES BURGOS, N/V SHAKY, VERTIGO.
--- NOTE | 2019-09-13 10:11 | NUR ---
PT AOX4. RETURNED FROM EGD @ 9667. DENIES PAIN. AOX4. [facility] NPO FOR RENAL ULTRASOUND ETA 1100HRS. REPORTS ONE LOOSE STOOL THIS AM AND MILD NAUSEA. WOULD LIKE SOME ZOFRAN CLOSE TO LUNCH TIME. NO NEW CONCERNS. VSS. PLACED ON POST OP VITALS
--- NOTE | 2019-09-13 15:27 | NUR ---
Initial visit; Patient thanked Immigration Associate for looking in on him and offering God's blessings.
--- NOTE | 2019-09-13 15:30 | NUR ---
Land Degradation Analyst attended clinical rounds with the team. FER followed up with JOLLY Chan who advised patient may be interested in outpatient physical therapy. FER will continue to follow.
--- NOTE | 2019-09-13 22:52 | NUR ---
Pt assessment completed, charted, roomair, alert, oriented, independent. Meds provided as per APR, tolerated well. Helped to settled down on his bed, call light on reach. No further needs at this time.
[2019-09-14 04:43] VITALS: BP 171/89; PULSE 66; TEMP 98.1
--- NOTE | 2019-09-14 05:14 | NUR ---
Pt slept through out the night. No further needs at this time.
--- NOTE | 2019-09-14 07:07 | NUR ---
awake watching TV, bedside shift report received from MYKEL Bettencourt
--- NOTE | 2019-09-14 07:20 | NUR ---
watching TV, full assessment completed, see intervention for further info, denies needs
[2019-09-14 07:23] VITALS: BP 176/92; PULSE 64; TEMP 98.1
--- NOTE | 2019-09-14 09:00 | NUR ---
sitting up in bed having breakfast,
--- NOTE | 2019-09-14 09:24 | NUR ---
ambulating in [place] with physical therapy
--- NOTE | 2019-09-14 10:07 | NUR ---
Dr Us and care team in to see patient
[2019-09-14 10:47] LABS: BASO % 0.1 % (0.0-2.0); GRAN # 9.8 (1.4-6.5); GRAN % 83.8 % (42.2-75.2); HEMATOCRIT 37.5 % (42.0-52.0); HEMOGLOBIN 12.8 g/dl (13.5-18.0); LYMPH # 0.8 (1.2-3.4); LYMPH % 6.5 % (20.0-51.0); MEAN CELL VOLUME 91 fl (80.0-100.0); MEAN CORPUSCULAR HEMOGLOBIN 31 pg (27.0-31.0); MEAN CORPUSCULAR HGB CONC 34 g/dl (33.0-37.0); MEAN PLATELET VOLUME 8.5 fl (7.4-10.4); MONO % 8.6 % (1.7-9.3); PLATELET COUNT 273 K/mm3 (130-400); RED BLOOD COUNT 4.12 M/mm3 (4.20-5.60); REDCELL DISTRIBUTION WIDTH-CV 14.1 % (11.5-14.5)
[2019-09-14] MEDS ORDERED: NORVASC 10MG10 MG PO (11:04)
[2019-09-14] MEDS ORDERED: ZESTRIL40 MG PO ×3 (11:04→11:22)
[2019-09-14 11:08] LABS: CALCIUM 9.1 mg/dL (8.4-10.2); CREATININE, serum 1.02 (0.66-1.25); POTASSIUM 3.7 mmol/L (3.4-5.0)
[2019-09-14] MEDS ORDERED: LIPITOR 40MG TA40 MG PO (11:15)
[2019-09-14 12:33] VITALS: BP 173/89; PULSE 82; TEMP 98.7
--- NOTE | 2019-09-14 13:03 | NUR ---
up and about in room independently, having lunch
--- NOTE | 2019-09-14 14:15 | NUR ---
discharge instructions given, verbalizes understanding
--- NOTE | 2019-09-14 14:25 | NUR ---
Preventive Medicine Officer followed up with patient who will discharge today. Patient was ambulating the hallways independently and states he doesn't think he needs outpatient PT at this time. Patient does report he is interested in setting up personal care services through his Medicaid. Patient can't remember who his adult protective caseworker is. FER left a message for Dione Price [place] Tractor Sweeper Driver. FER also contacted Shruthi Preventive Medicine Officer at Dr. Pearl's office but she was not familiar with patient. FER will follow up with Dione Price and then continue to follow up with patient.
--- NOTE | 2019-09-14 14:28 | NUR ---
discharged ambulatory
--- NOTE | 2019-09-21 14:17 | NUR ---
Registered Respiratory Therapist followed up with Dione Price, Bus And Rail Operator at [facility] who advised patient is on her caseload. Patient had in home supports set up, however no agency would provide in home supports due to the condition of his home. Dione reports that patient has feces around his home that has not been cleaned up along with cockroaches. Dione believes Adult Protective Services has been involved. SW made a report to APS. Intake [id number].
== END 2019-09-14 14:29 | disposition home or self-care (01) | DRG 386 ==
LOC: COL.ER 17:10 → ICU 20:24 → COL.ER 20:24 → ICU 09-11 20:10 → MEDICAL 09-11 20:10
PROVIDERS: Emergency Medicine; Internal Medicine Gastroenterology; Nurse Practitioner Family; Physician Assistant; ADMIT Internal Medicine
PROC: 0DB68ZX Excision of Stomach, Via Natural or Artificial Opening Endoscopic, Diagnostic (ICD-10-PCS; 2019-09-13)
PROC: 0DB98ZX Excision of Duodenum, Via Natural or Artificial Opening Endoscopic, Diagnostic (ICD-10-PCS; principal; 2019-09-13 08:30)
DX: K50.80 Crohn's disease of both small and large intestine without complications (principal); I16.1 Hypertensive emergency; E87.1 Hypo-osmolality and hyponatremia; Q39.8 Other congenital malformations of esophagus; E78.5 Hyperlipidemia, unspecified; J44.9 Chronic obstructive pulmonary disease, unspecified; F90.9 Attention-deficit hyperactivity disorder, unspecified type; F32.9 Major depressive disorder, single episode, unspecified; G40.909 Epilepsy, unspecified, not intractable, without status epilepticus; R73.9 Hyperglycemia, unspecified; K29.80 Duodenitis without bleeding; K21.0 Gastro-esophageal reflux disease with esophagitis; K29.70 Gastritis, unspecified, without bleeding; K44.9 Diaphragmatic hernia without obstruction or gangrene; Z90.89 Acquired absence of other organs; Z79.82 Long term (current) use of aspirin; Z87.891 Personal history of nicotine dependence
CPT/HCPCS: 99223-AI; 99232-AI; 99233-AI; 99239; J0360; J1650; J1815; J2405; J2550; J2704; J2920; J3010; J7030; J7050; Q9967

== ENCOUNTER → 2019-10-01 | Outpatient (CLI) | payer MEDICARE, MEDICAID ==
[~2019-10-01] MED LIST changes: +ASPIRIN 81M81 MG/TA2 PO; +CARAFATE 1GM1 G PO; +CARAFATE S1 GM/10 ML PO; +LIPITOR 40MG TA40 MG PO; +METHOTREXA2.5 MG/TAB PO; +NITROSTAT0.4 MG/TAB SL; +NORVASC 10MG10 MG PO; +PREDNISONE 5MG5 MG PO; +PROCTOZONE-HC2.5% RC; +VENTOLIN0.09 MG IH; +ZESTRIL40 MG PO; +ZOFRAN8 MG PO
== END ==
LOC: COL.RAD 08:18
DX: K20.9 Esophagitis, unspecified (principal); R19.7 Diarrhea, unspecified
CPT/HCPCS: A9541

== ENCOUNTER 2019-11-02 14:00 | Outpatient (RCR) | payer MEDICARE, MEDICAID ==
[2019-09-21 13:45] VITALS: BP 143/78; PULSE 78; TEMP 98.7
[2019-09-21 13:47] LABS: HEMOGLOBIN 12.1 g/dl (13.5-18.0); MEAN CELL VOLUME 90 fl (80.0-100.0); MEAN CORPUSCULAR HEMOGLOBIN 31 pg (27.0-31.0); MEAN CORPUSCULAR HGB CONC 35 g/dl (33.0-37.0); MEAN PLATELET VOLUME 7.8 fl (7.4-10.4); PLATELET COUNT 342 K/mm3 (130-400); RED BLOOD COUNT 3.89 M/mm3 (4.20-5.60); REDCELL DISTRIBUTION WIDTH-CV 14.3 % (11.5-14.5)
[2019-09-21 13:48] LABS: HEMATOCRIT 35.1 % (42.0-52.0)
[2019-09-21 13:57] LABS: ALBUMIN 3.7 gm/dL (3.5-5.0); BILIRUBIN,TOTAL 0.5 mg/dL (0.0-1.0); CALCIUM 8.8 mg/dL (8.4-10.2); CREATININE, serum 0.67 (0.66-1.25); POTASSIUM 3.9 mmol/L (3.4-5.0); TOTAL PROTEIN 6.8 gm/dL (6.4-8.2)
[2019-09-21 15:00] VITALS: BP 174/97; PULSE 73
[2019-09-21 15:10] VITALS: BP 174/93; PULSE 74
[2019-09-21 15:20] VITALS: BP 167/98; PULSE 79
[2019-10-05 14:07] LABS: HEMATOCRIT 40.5 % (42.0-52.0); HEMOGLOBIN 13.4 g/dl (13.5-18.0); MEAN CELL VOLUME 92 fl (80.0-100.0); MEAN CORPUSCULAR HEMOGLOBIN 31 pg (27.0-31.0); MEAN CORPUSCULAR HGB CONC 33 g/dl (33.0-37.0); MEAN PLATELET VOLUME 8.3 fl (7.4-10.4); PLATELET COUNT 318 K/mm3 (130-400); RED BLOOD COUNT 4.39 M/mm3 (4.20-5.60); REDCELL DISTRIBUTION WIDTH-CV 14.1 % (11.5-14.5)
[2019-10-05 14:11] LABS: BILIRUBIN,TOTAL 0.7 mg/dL (0.0-1.0); CALCIUM 9.3 mg/dL (8.4-10.2); CREATININE, serum 0.91 (0.66-1.25); POTASSIUM 4.8 mmol/L (3.4-5.0); TOTAL PROTEIN 7.2 gm/dL (6.4-8.2)
[2019-10-05 15:23] VITALS: BP 140/88; PULSE 83; TEMP 98.4
[2019-10-05 15:42] VITALS: BP 141/86; PULSE 88
[~2019-11-02] VITALS: Ht 182.9 cm; Wt 78.5 kg
[2019-11-02 14:34] LABS: HEMATOCRIT 36.8 % (42.0-52.0); HEMOGLOBIN 13.1 g/dl (13.5-18.0); MEAN CELL VOLUME 87 fl (80.0-100.0); MEAN CORPUSCULAR HEMOGLOBIN 31 pg (27.0-31.0); MEAN CORPUSCULAR HGB CONC 36 g/dl (33.0-37.0); MEAN PLATELET VOLUME 7.8 fl (7.4-10.4); PLATELET COUNT 313 K/mm3 (130-400); RED BLOOD COUNT 4.21 M/mm3 (4.20-5.60); REDCELL DISTRIBUTION WIDTH-CV 13.2 % (11.5-14.5)
[2019-11-02 14:46] LABS: ALBUMIN 4.1 gm/dL (3.5-5.0); BILIRUBIN,TOTAL 0.7 mg/dL (0.0-1.0); CALCIUM 8.9 mg/dL (8.4-10.2); CREATININE, serum 0.9 (0.66-1.25); POTASSIUM 3.7 mmol/L (3.4-5.0)
[2019-11-02 15:44] VITALS: BP 204/129; PULSE 89; TEMP 99.1
[2019-11-02 15:55] VITALS: BP 195/116; PULSE 80
[2019-11-02 16:05] VITALS: BP 195/122; PULSE 84
[2019-11-02 16:15] VITALS: BP 195/117; PULSE 85
--- NOTE | 2019-11-02 16:15 | NUR ---
Pt's bp elevated throughout his infusion. pt reports did not take his bp medication today, and will go home and take medication. Pt encouraged to monitor bp, and to f/u with pcp or ER for persistent hypertension especially if experiencing any neuro symptoms like dizziness, visual changes or altered mental status. Pt has been asymptomatic throughout his infusion other than some sleepiness after benadryl which has resolved.
== END 2019-11-02 16:30 | disposition home or self-care (01) ==
LOC: EUO 14:00
PROVIDERS: Internal Medicine Gastroenterology
DX: K50.90 Crohn's disease, unspecified, without complications (principal); Z79.899 Other long term (current) drug therapy
CPT/HCPCS: J1200; J2920; J2930; J3380; J7050

== ENCOUNTER 2019-12-28 14:07 | Outpatient (CLI) | payer MEDICARE, MEDICAID ==
[~2019-12-28] VITALS: Ht 182.9 cm; Wt 81.6 kg
[2019-12-28 14:36] LABS: BASO # 0.1 (0.0-0.2); BASO % 0.7 % (0.0-2.0); EOS # 0.1 (0.0-0.7); EOS % 1.5 % (0-4.0); GRAN % 68.8 % (42.2-75.2); HEMATOCRIT 39.1 % (42.0-52.0); HEMOGLOBIN 13.4 g/dl (13.5-18.0); LYMPH # 1.4 (1.2-3.4); LYMPH % 19.1 % (20.0-51.0); MEAN CELL VOLUME 88 fl (80.0-100.0); MEAN CORPUSCULAR HEMOGLOBIN 30 pg (27.0-31.0); MEAN CORPUSCULAR HGB CONC 34 g/dl (33.0-37.0); MONO # 0.7 (0.1-0.6); MONO % 9.6 % (1.7-9.3); PLATELET COUNT 319 K/mm3 (130-400); RED BLOOD COUNT 4.44 M/mm3 (4.20-5.60); REDCELL DISTRIBUTION WIDTH-CV 13.2 % (11.5-14.5)
[2019-12-28 14:45] LABS: ALBUMIN 4.3 gm/dL (3.5-5.0); BILIRUBIN,TOTAL 0.5 mg/dL (0.0-1.0); CALCIUM 8.9 mg/dL (8.4-10.2); CREATININE, serum 0.85 (0.66-1.25); POTASSIUM 3.8 mmol/L (3.4-5.0); TOTAL PROTEIN 7.2 gm/dL (6.4-8.2)
[2019-12-28 15:08] VITALS: BP 199/121; PULSE 90; TEMP 98.5
--- NOTE | 2019-12-28 15:09 | NUR ---
Message left on Dr. Bland's phone to inform him of elevated BP reading. Pt states it's been a very stressful day for him, and he thinks he forgot to take his morning dose of lisinopril.
[2019-12-28 15:40] VITALS: BP 190/121; PULSE 86; TEMP 98.5
[2019-12-28 16:10] VITALS: BP 188/121; PULSE 83; TEMP 98.8
[2019-12-28 16:40] VITALS: BP 187/101; PULSE 79
--- NOTE | 2019-12-28 16:58 | NUR ---
Virtual appt with Cardiology WILDLIFE AND GAME PROTECTOR scheduled with office for pt tomorrow at 2pm to discuss BPs. Appt time given to pt.
== END 2019-12-28 17:56 | disposition home or self-care (01) ==
LOC: EUO 14:07
PROVIDERS: Internal Medicine Gastroenterology
DX: K50.90 Crohn's disease, unspecified, without complications (principal); Z79.899 Other long term (current) drug therapy
CPT/HCPCS: J1200; J2920; J3380; J7050

== ENCOUNTER 2020-01-19 14:06 | Emergency (ER) | payer MEDICARE, MEDICAID ==
[~2020-01-19] VITALS: Ht 182.9 cm; Wt 72.7 kg
[2020-01-19 14:47] VITALS: BP 139/88; TEMP 100.4
[2020-01-19 15:10] LABS: BASO % 0.3 % (0.0-2.0); EOS # 0.1 (0.0-0.7); EOS % 0.8 % (0-4.0); GRAN # 4.3 (1.4-6.5); GRAN % 68.8 % (42.2-75.2); HEMATOCRIT 38.2 % (42.0-52.0); HEMOGLOBIN 13.1 g/dl (13.5-18.0); LYMPH # 0.8 (1.2-3.4); LYMPH % 12.7 % (20.0-51.0); MEAN CELL VOLUME 88 fl (80.0-100.0); MEAN CORPUSCULAR HEMOGLOBIN 30 pg (27.0-31.0); MEAN CORPUSCULAR HGB CONC 34 g/dl (33.0-37.0); MEAN PLATELET VOLUME 8.4 fl (7.4-10.4); MONO # 1.1 (0.1-0.6); MONO % 16.9 % (1.7-9.3); PLATELET COUNT 257 K/mm3 (130-400); RED BLOOD COUNT 4.32 M/mm3 (4.20-5.60); REDCELL DISTRIBUTION WIDTH-CV 12.8 % (11.5-14.5)
[2020-01-19 15:27] LABS: ALBUMIN 3.8 gm/dL (3.5-5.0); BILIRUBIN,TOTAL 0.7 mg/dL (0.0-1.0); CALCIUM 9.3 mg/dL (8.4-10.2); CREATININE, serum 1.15 (0.66-1.25); POTASSIUM 3.6 mmol/L (3.4-5.0)
[2020-01-19] MEDS ORDERED: PREDNISONE10 MG PO (16:42)
[2020-01-19 18:02] VITALS: PULSE 76
== END 2020-01-19 18:02 | disposition home or self-care (01) ==
LOC: COL.ER 14:06
PROVIDERS: Family Medicine
DX: U07.1 COVID-19 (principal); K50.90 Crohn's disease, unspecified, without complications; I10 Essential (primary) hypertension; J44.9 Chronic obstructive pulmonary disease, unspecified; F90.9 Attention-deficit hyperactivity disorder, unspecified type; F32.9 Major depressive disorder, single episode, unspecified; Z87.891 Personal history of nicotine dependence; Z79.82 Long term (current) use of aspirin
CPT/HCPCS: J1100; J7030; J7120

== ENCOUNTER 2020-01-21 16:31 | Emergency (ER) | payer MEDICARE, MEDICAID ==
[~2020-01-21] VITALS: Ht 182.9 cm; Wt 72.7 kg
[2020-01-21 17:08] LABS: HEMATOCRIT 39.1 % (42.0-52.0); HEMOGLOBIN 13.5 g/dl (13.5-18.0); MEAN CELL VOLUME 88 fl (80.0-100.0); MEAN CORPUSCULAR HEMOGLOBIN 30 pg (27.0-31.0); MEAN CORPUSCULAR HGB CONC 35 g/dl (33.0-37.0); MEAN PLATELET VOLUME 8.8 fl (7.4-10.4); PLATELET COUNT 320 K/mm3 (130-400); RED BLOOD COUNT 4.45 M/mm3 (4.20-5.60); REDCELL DISTRIBUTION WIDTH-CV 12.9 % (11.5-14.5)
[2020-01-21 18:01] LABS: LYMPHOCYTE 16 % (20.0-51.0); METAMYELOCYTE 1 % (0-0); NEUTROPHILS 68 % (42.0-75.2)
[2020-01-21 18:02] LABS: PLATELET ESTIMATE NORMAL (NORMAL)
[2020-01-21 18:09] LABS: ALBUMIN 3.9 gm/dL (3.5-5.0); BILIRUBIN,TOTAL 0.9 mg/dL (0.0-1.0); C-REACTIVE PROTEIN 5.2 mg/dL (0.0-0.9); CALCIUM 8.8 mg/dL (8.4-10.2); CREATININE, serum 0.9 (0.66-1.25); POTASSIUM 3.6 mmol/L (3.4-5.0); TOTAL PROTEIN 7.4 gm/dL (6.4-8.2)
[2020-01-21 19:30] VITALS: BP 178/101; PULSE 74; TEMP 98.9
== END 2020-01-21 19:35 | disposition home or self-care (01) ==
LOC: COL.ER 16:31
PROVIDERS: Emergency Medicine
DX: K50.00 Crohn's disease of small intestine without complications (principal); U07.1 COVID-19; I16.0 Hypertensive urgency; I10 Essential (primary) hypertension; F90.9 Attention-deficit hyperactivity disorder, unspecified type; J44.9 Chronic obstructive pulmonary disease, unspecified; F17.200 Nicotine dependence, unspecified, uncomplicated; F32.9 Major depressive disorder, single episode, unspecified; I95.1 Orthostatic hypotension; Z90.89 Acquired absence of other organs; Z90.49 Acquired absence of other specified parts of digestive tract; Z79.51 Long term (current) use of inhaled steroids
CPT/HCPCS: J0360; J2405; J7030

== ENCOUNTER 2020-02-15 14:03 | Outpatient (CLI) | payer MEDICARE, MEDICAID ==
[~2020-02-15] VITALS: Ht 182.9 cm; Wt 87.2 kg
[2020-02-15 13:45] VITALS: BP 121/78; PULSE 98; TEMP 98.8
[2020-02-15 14:21] LABS: HEMATOCRIT 39.3 % (42.0-52.0); HEMOGLOBIN 13.6 g/dl (13.5-18.0); MEAN CELL VOLUME 87 fl (80.0-100.0); MEAN CORPUSCULAR HEMOGLOBIN 30 pg (27.0-31.0); MEAN CORPUSCULAR HGB CONC 35 g/dl (33.0-37.0); MEAN PLATELET VOLUME 8.2 fl (7.4-10.4); PLATELET COUNT 251 K/mm3 (130-400); RED BLOOD COUNT 4.51 M/mm3 (4.20-5.60)
[2020-02-15 14:32] LABS: ALBUMIN 3.7 gm/dL (3.5-5.0); BILIRUBIN,TOTAL 0.7 mg/dL (0.0-1.0); CALCIUM 8.6 mg/dL (8.4-10.2); CREATININE, serum 0.78 (0.66-1.25); POTASSIUM 3.4 mmol/L (3.4-5.0); TOTAL PROTEIN 6.8 gm/dL (6.4-8.2)
== END 2020-02-15 15:45 | disposition home or self-care (01) ==
LOC: EUO 14:03
PROVIDERS: Internal Medicine Gastroenterology
DX: K50.90 Crohn's disease, unspecified, without complications (principal); Z79.899 Other long term (current) drug therapy
CPT/HCPCS: J1200; J2920; J3380; J7050

== ENCOUNTER 2020-04-11 12:55 | Outpatient (CLI) | payer MEDICARE, MEDICAID ==
[~2020-04-11] VITALS: Ht 182.9 cm; Wt 81.3 kg
[2020-04-11 13:37] LABS: BASO # 0.1 (0.0-0.2); BASO % 0.7 % (0.0-2.0); EOS # 0.1 (0.0-0.7); EOS % 0.9 % (0-4.0); GRAN # 4.9 (1.4-6.5); GRAN % 69.7 % (42.2-75.2); HEMOGLOBIN 13.9 g/dl (13.5-18.0); LYMPH # 1.2 (1.2-3.4); LYMPH % 17.7 % (20.0-51.0); MEAN CELL VOLUME 87 fl (80.0-100.0); MEAN CORPUSCULAR HEMOGLOBIN 30 pg (27.0-31.0); MEAN CORPUSCULAR HGB CONC 35 g/dl (33.0-37.0); MONO # 0.7 (0.1-0.6); MONO % 10.4 % (1.7-9.3); PLATELET COUNT 266 K/mm3 (130-400); RED BLOOD COUNT 4.59 M/mm3 (4.20-5.60); REDCELL DISTRIBUTION WIDTH-CV 14.3 % (11.5-14.5)
[2020-04-11 13:47] LABS: ALBUMIN 4.1 gm/dL (3.5-5.0); BILIRUBIN,TOTAL 0.6 mg/dL (0.0-1.0); CALCIUM 9.1 mg/dL (8.4-10.2); CREATININE, serum 0.83 (0.66-1.25); POTASSIUM 3.5 mmol/L (3.4-5.0)
[2020-04-11 14:29] VITALS: BP 197/102; PULSE 93; TEMP 98.8
[2020-04-11 15:12] VITALS: BP 182/92; PULSE 72; TEMP 98.8
== END 2020-04-11 15:13 | disposition home or self-care (01) ==
LOC: EUO 12:55
PROVIDERS: Internal Medicine Gastroenterology
DX: K50.90 Crohn's disease, unspecified, without complications (principal); Z79.899 Other long term (current) drug therapy
CPT/HCPCS: J1200; J2930; J3380; J7050

== ENCOUNTER 2020-06-06 13:25 | Outpatient (CLI) | payer MEDICARE, MEDICAID ==
[~2020-06-06] VITALS: Ht 182.9 cm; Wt 82.0 kg
[2020-06-06 13:53] LABS: HEMATOCRIT 40.8 % (42.0-52.0); MEAN CELL VOLUME 86 fl (80.0-100.0); MEAN CORPUSCULAR HEMOGLOBIN 30 pg (27.0-31.0); MEAN CORPUSCULAR HGB CONC 34 g/dl (33.0-37.0); MEAN PLATELET VOLUME 7.9 fl (7.4-10.4); PLATELET COUNT 370 K/mm3 (130-400); RED BLOOD COUNT 4.73 M/mm3 (4.20-5.60); REDCELL DISTRIBUTION WIDTH-CV 13.1 % (11.5-14.5)
[2020-06-06 14:04] LABS: ALBUMIN 3.9 gm/dL (3.5-5.0); BILIRUBIN,TOTAL 0.4 mg/dL (0.0-1.0); CALCIUM 8.9 mg/dL (8.4-10.2); CREATININE, serum 0.92 (0.66-1.25); POTASSIUM 3.7 mmol/L (3.4-5.0); TOTAL PROTEIN 7.1 gm/dL (6.4-8.2)
[2020-06-06 14:21] VITALS: BP 124/79; PULSE 67; TEMP 98.2
[2020-06-06 15:11] VITALS: BP 126/80; PULSE 67; TEMP 98.2
== END 2020-06-06 15:15 | disposition home or self-care (01) ==
LOC: EUO 13:25
PROVIDERS: Internal Medicine Gastroenterology
DX: K50.90 Crohn's disease, unspecified, without complications (principal); Z79.899 Other long term (current) drug therapy
CPT/HCPCS: J1200; J2930; J3380; J7050

== ENCOUNTER 2020-07-27 12:10 | Outpatient (CLI) | payer MEDICARE, MEDICAID ==
[~2020-07-27] VITALS: Ht 182.9 cm; Wt 78.1 kg
[2020-07-27 12:34] LABS: BASO % 0.3 % (0.0-2.0); EOS # 0.1 (0.0-0.7); EOS % 0.6 % (0-4.0); GRAN # 6.7 (1.4-6.5); GRAN % 73.3 % (42.2-75.2); HEMATOCRIT 39.2 % (42.0-52.0); HEMOGLOBIN 13.5 g/dl (13.5-18.0); LYMPH # 1.4 (1.2-3.4); LYMPH % 15.1 % (20.0-51.0); MEAN CELL VOLUME 84 fl (80.0-100.0); MEAN CORPUSCULAR HEMOGLOBIN 29 pg (27.0-31.0); MEAN CORPUSCULAR HGB CONC 34 g/dl (33.0-37.0); MEAN PLATELET VOLUME 8.3 fl (7.4-10.4); MONO # 0.9 (0.1-0.6); MONO % 10.1 % (1.7-9.3); PLATELET COUNT 309 K/mm3 (130-400); RED BLOOD COUNT 4.69 M/mm3 (4.20-5.60); REDCELL DISTRIBUTION WIDTH-CV 13.6 % (11.5-14.5)
[2020-07-27 12:35] VITALS: BP 162/91; PULSE 79; TEMP 99.1
[2020-07-27 12:44] LABS: ALBUMIN 3.9 gm/dL (3.5-5.0); BILIRUBIN,TOTAL 1.1 mg/dL (0.0-1.0); CALCIUM 9.1 mg/dL (8.4-10.2); CREATININE, serum 0.89 (0.66-1.25); POTASSIUM 3.2 mmol/L (3.4-5.0); TOTAL PROTEIN 7.2 gm/dL (6.4-8.2)
[2020-07-27] MEDS ORDERED: PREDNISONE 5MG5 MG PO (12:53)
[2020-07-27 13:45] VITALS: BP 178/101; PULSE 73; TEMP 98.2
[2020-07-27 13:55] VITALS: BP 193/99; PULSE 71
[2020-07-27 14:05] VITALS: BP 174/101; PULSE 65
--- NOTE | 2020-07-27 14:26 | NUR ---
INT DC'd with catheter intact. Pt informed that cardiology office will be reaching out to him to arrange appt regarding blood pressure managment. He experesses understanding.
== END 2020-07-27 14:27 | disposition home or self-care (01) ==
LOC: EUO 12:10
PROVIDERS: Internal Medicine Gastroenterology
DX: K50.90 Crohn's disease, unspecified, without complications (principal); Z79.899 Other long term (current) drug therapy
CPT/HCPCS: J1200; J2920; J3380; J7050

== ENCOUNTER 2020-08-01 13:52 | Emergency (ER) | payer MEDICARE, MEDICAID ==
[~2020-08-01] VITALS: Ht 182.9 cm; Wt 77.3 kg
[2020-08-01 14:10] VITALS: TEMP 97.9
[2020-08-01] MEDS ORDERED: AMOXICILLIN 8751 TAB PO (14:44)
[2020-08-01] MEDS ORDERED: NORCO 325 MG-51 TAB PO (14:45)
[2020-08-01 15:06] VITALS: BP 108/53; PULSE 62
== END 2020-08-01 15:06 | disposition home or self-care (01) ==
LOC: COL.ER 13:52
DX: S61.051A Open bite of right thumb without damage to nail, initial encounter (principal); I10 Essential (primary) hypertension; F41.9 Anxiety disorder, unspecified; F32.9 Major depressive disorder, single episode, unspecified; Z23 Encounter for immunization; Z87.891 Personal history of nicotine dependence; Z79.899 Other long term (current) drug therapy; W54.0XXA Bitten by dog, initial encounter

== ENCOUNTER 2020-09-28 13:59 | Outpatient (CLI) | payer MEDICARE, MEDICAID ==
[~2020-09-28 13:59] MED LIST changes: +AMOXICILLIN 8751 TAB PO
[2020-09-28 14:48] LABS: HEMATOCRIT 41.2 % (42.0-52.0); HEMOGLOBIN 14.1 g/dl (13.5-18.0); MEAN CELL VOLUME 83 fl (80.0-100.0); MEAN CORPUSCULAR HEMOGLOBIN 28 pg (27.0-31.0); MEAN CORPUSCULAR HGB CONC 34 g/dl (33.0-37.0); MEAN PLATELET VOLUME 7.9 fl (7.4-10.4); PLATELET COUNT 374 K/mm3 (130-400); RED BLOOD COUNT 4.97 M/mm3 (4.20-5.60); REDCELL DISTRIBUTION WIDTH-CV 14.6 % (11.5-14.5)
[2020-09-28 14:59] LABS: BILIRUBIN,TOTAL 0.6 mg/dL (0.0-1.0); CALCIUM 9.1 mg/dL (8.4-10.2); CREATININE, serum 0.79 (0.66-1.25); POTASSIUM 3.6 mmol/L (3.4-5.0); TOTAL PROTEIN 7.3 gm/dL (6.4-8.2)
[2020-09-28 15:58] VITALS: BP 182/89; PULSE 71; TEMP 97.1
== END 2020-09-28 17:02 ==
LOC: EUO 13:59
PROVIDERS: Internal Medicine Gastroenterology
DX: K50.90 Crohn's disease, unspecified, without complications (principal); Z79.899 Other long term (current) drug therapy
CPT/HCPCS: J1200; J2920; J3380; J7050

== ENCOUNTER 2020-10-15 10:13 | Emergency (ER) | payer MEDICARE, MEDICAID ==
[~2020-10-15] VITALS: Ht 182.9 cm; Wt 72.7 kg
[2020-10-15 11:33] LABS: BASO % 0.5 % (0.0-2.0); EOS % 0.6 % (0-4.0); GRAN # 4.9 (1.4-6.5); GRAN % 75.3 % (42.2-75.2); HEMATOCRIT 41.9 % (42.0-52.0); HEMOGLOBIN 14.2 g/dl (13.5-18.0); LYMPH # 0.7 (1.2-3.4); LYMPH % 10.8 % (20.0-51.0); MEAN CELL VOLUME 84 fl (80.0-100.0); MEAN CORPUSCULAR HEMOGLOBIN 29 pg (27.0-31.0); MEAN CORPUSCULAR HGB CONC 34 g/dl (33.0-37.0); MEAN PLATELET VOLUME 8.3 fl (7.4-10.4); MONO # 0.8 (0.1-0.6); MONO % 12.5 % (1.7-9.3); PLATELET COUNT 303 K/mm3 (130-400); RED BLOOD COUNT 4.98 M/mm3 (4.20-5.60); REDCELL DISTRIBUTION WIDTH-CV 14.9 % (11.5-14.5)
[2020-10-15 11:50] LABS: ALBUMIN 4.2 gm/dL (3.5-5.0); BILIRUBIN,TOTAL 1.3 mg/dL (0.0-1.0); CALCIUM 9.4 mg/dL (8.4-10.2); CREATININE, serum 1.4 (0.66-1.25); POTASSIUM 3.8 mmol/L (3.4-5.0); TOTAL PROTEIN 7.3 gm/dL (6.4-8.2)
[2020-10-15] MEDS ORDERED: PREDNISONE10 MG PO (13:30)
[2020-10-15] MEDS ORDERED: ZOFRAN ODT4 MG PO (13:30)
[2020-10-15 14:15] VITALS: BP 154/98; PULSE 78; TEMP 97
== END 2020-10-15 14:15 | disposition home or self-care (01) ==
LOC: COL.ER 10:13
PROVIDERS: Emergency Medicine
DX: R10.84 Generalized abdominal pain (principal); N17.9 Acute kidney failure, unspecified; E87.1 Hypo-osmolality and hyponatremia; G89.29 Other chronic pain; R19.7 Diarrhea, unspecified; R11.2 Nausea with vomiting, unspecified; I10 Essential (primary) hypertension; J44.9 Chronic obstructive pulmonary disease, unspecified; F90.9 Attention-deficit hyperactivity disorder, unspecified type; F32.9 Major depressive disorder, single episode, unspecified; Z90.49 Acquired absence of other specified parts of digestive tract; Z79.899 Other long term (current) drug therapy; Z79.52 Long term (current) use of systemic steroids
CPT/HCPCS: J2405; J2930; J3010; J7030; J7512; Q9967

== ENCOUNTER 2020-11-23 14:05 | Outpatient (CLI) | payer MEDICARE, MEDICAID ==
[~2020-11-23] VITALS: Ht 182.9 cm; Wt 78.1 kg
[2020-11-23 14:39] LABS: HEMATOCRIT 39.9 % (42.0-52.0); MEAN CELL VOLUME 84 fl (80.0-100.0); MEAN CORPUSCULAR HEMOGLOBIN 30 pg (27.0-31.0); MEAN CORPUSCULAR HGB CONC 35 g/dl (33.0-37.0); PLATELET COUNT 281 K/mm3 (130-400); RED BLOOD COUNT 4.73 M/mm3 (4.20-5.60); REDCELL DISTRIBUTION WIDTH-CV 15.2 % (11.5-14.5)
[2020-11-23 14:55] LABS: ALBUMIN 3.7 gm/dL (3.5-5.0); BILIRUBIN,TOTAL 0.5 mg/dL (0.2-1.2); CALCIUM 9.2 mg/dL (8.4-10.2); CREATININE, serum 1.01 mg/dL (0.72-1.25); POTASSIUM 3.5 mmol/L (3.5-4.5); TOTAL PROTEIN 7.1 gm/dL (6.2-8.1)
[2020-11-23 16:08] VITALS: BP 174/116; PULSE 94; TEMP 97.1
== END 2020-11-23 16:49 ==
LOC: EUO 14:05
PROVIDERS: Internal Medicine Gastroenterology
DX: Z79.899 Other long term (current) drug therapy (principal)
CPT/HCPCS: J1200; J2930; J3380; J7050

== ENCOUNTER 2021-01-18 14:17 | Outpatient (CLI) | payer MEDICARE, MEDICAID ==
[~2021-01-18] VITALS: Ht 182.9 cm; Wt 83.6 kg
[2021-01-18 14:39] LABS: HEMATOCRIT 36.5 % (42.0-52.0); HEMOGLOBIN 12.9 g/dl (13.5-18.0); MEAN CELL VOLUME 87 fl (80.0-100.0); MEAN CORPUSCULAR HEMOGLOBIN 31 pg (27.0-31.0); MEAN CORPUSCULAR HGB CONC 35 g/dl (33.0-37.0); MEAN PLATELET VOLUME 7.9 fl (7.4-10.4); PLATELET COUNT 261 K/mm3 (130-400); RED BLOOD COUNT 4.22 M/mm3 (4.20-5.60); REDCELL DISTRIBUTION WIDTH-CV 14.5 % (11.5-14.5)
[2021-01-18 14:59] LABS: ALBUMIN 3.5 gm/dL (3.5-5.0); BILIRUBIN,TOTAL 0.6 mg/dL (0.2-1.2); CALCIUM 8.7 mg/dL (8.4-10.2); CREATININE, serum 0.95 mg/dL (0.72-1.25); POTASSIUM 3.3 mmol/L (3.5-4.5); TOTAL PROTEIN 6.3 gm/dL (6.2-8.1)
[2021-01-18 15:30] VITALS: BP 146/88; PULSE 71; TEMP 98.2
== END 2021-01-18 16:23 ==
LOC: EUO 14:17
PROVIDERS: Internal Medicine Gastroenterology
DX: K50.00 Crohn's disease of small intestine without complications (principal)
CPT/HCPCS: J1200; J2930; J3380; J7050

== ENCOUNTER 2021-03-21 14:06 | Outpatient (CLI) | payer MEDICARE, MEDICAID ==
[~2021-03-21] VITALS: Ht 182.9 cm; Wt 80.8 kg
[2021-03-21 14:31] LABS: HEMATOCRIT 39.7 % (42.0-52.0); HEMOGLOBIN 14.2 g/dl (13.5-18.0); MEAN CELL VOLUME 86 fl (80.0-100.0); MEAN CORPUSCULAR HEMOGLOBIN 31 pg (27-31); MEAN CORPUSCULAR HGB CONC 36 g/dl (33.0-37.0); MEAN PLATELET VOLUME 8.1 fl (7.4-10.4); PLATELET COUNT 328 K/mm3 (130-400); RED BLOOD COUNT 4.61 M/mm3 (4.20-5.60); REDCELL DISTRIBUTION WIDTH-CV 12.7 % (11.5-14.5)
[2021-03-21 14:46] LABS: ALBUMIN 3.4 gm/dL (3.5-5.0); BILIRUBIN,TOTAL 0.7 mg/dL (0.2-1.2); CREATININE, serum 0.81 mg/dL (0.72-1.25); POTASSIUM 3.1 mmol/L (3.5-4.5); TOTAL PROTEIN 6.7 gm/dL (6.2-8.1)
[2021-03-21 15:45] VITALS: BP 170/100; PULSE 74; TEMP 97.5
== END 2021-03-21 16:21 ==
LOC: EUO 14:06
PROVIDERS: Internal Medicine Gastroenterology
DX: K50.00 Crohn's disease of small intestine without complications (principal); Z79.899 Other long term (current) drug therapy
CPT/HCPCS: J1200; J2930; J3380; J7050

== ENCOUNTER 2021-05-23 11:06 | Outpatient (CLI) | payer MEDICARE, MEDICAID ==
[~2021-05-23] VITALS: Ht 182.9 cm; Wt 88.4 kg
[2021-05-23 11:31] LABS: BASO % 0.4 % (0.0-2.0); EOS # 0.1 K/mm3 (0.0-0.7); EOS % 1.7 % (0.0-4.0); GRAN # 5.5 K/mm3 (1.4-6.5); GRAN % 66.2 % (42.2-75.2); HEMATOCRIT 39.1 % (42.0-52.0); HEMOGLOBIN 13.9 g/dl (13.5-18.0); LYMPH # 1.7 K/mm3 (1.2-3.4); LYMPH % 20.5 % (20.0-51.0); MEAN CELL VOLUME 85 fl (80.0-100.0); MEAN CORPUSCULAR HEMOGLOBIN 30 pg (27-31); MEAN CORPUSCULAR HGB CONC 36 g/dl (33.0-37.0); MEAN PLATELET VOLUME 8.2 fl (7.4-10.4); MONO # 0.9 K/mm3 (0.1-0.6); MONO % 10.6 % (1.7-9.3); PLATELET COUNT 252 K/mm3 (130-400); RED BLOOD COUNT 4.59 M/mm3 (4.20-5.60); REDCELL DISTRIBUTION WIDTH-CV 13.8 % (11.5-14.5)
[2021-05-23 11:46] LABS: ALBUMIN 3.3 gm/dL (3.5-5.0); BILIRUBIN,TOTAL 0.9 mg/dL (0.2-1.2); CALCIUM 8.5 mg/dL (8.4-10.2); CREATININE, serum 0.82 mg/dL (0.72-1.25); POTASSIUM 3.2 mmol/L (3.5-4.5); TOTAL PROTEIN 6.2 gm/dL (6.2-8.1)
[2021-05-23 13:31] VITALS: BP 197/110; PULSE 57; TEMP 98.2
--- NOTE | 2021-05-24 08:02 | NUR ---
Lab order received from .order taken to lab and Mariama,in lab confirmed they can place order for Entyvio level drawn yesterday.
== END 2021-05-25 10:47 ==
LOC: EUO 11:06
PROVIDERS: Internal Medicine Gastroenterology
DX: K50.00 Crohn's disease of small intestine without complications (principal); Z79.899 Other long term (current) drug therapy
CPT/HCPCS: J1200; J2920; J3380; J7050

== ENCOUNTER → 2021-06-30 | Outpatient (CLI) | payer MEDICARE, MEDICAID | LOC: COL.LAB 16:45 | DX: R19.7 Diarrhea, unspecified (principal) ==

== ENCOUNTER 2021-08-05 17:26 | Emergency (ER) | payer MEDICARE, MEDICAID ==
[~2021-08-05] VITALS: Ht 182.9 cm; Wt 72.7 kg
[2021-08-05 17:38] VITALS: TEMP 97.5
[2021-08-05 18:11] LABS: BASO # 0.1 K/mm3 (0.0-0.2); BASO % 0.7 % (0.0-2.0); EOS # 0.2 K/mm3 (0.0-0.7); EOS % 2.9 % (0.0-4.0); GRAN # 5.6 K/mm3 (1.4-6.5); HEMATOCRIT 37.7 % (42.0-52.0); HEMOGLOBIN 13.2 g/dl (13.5-18.0); LYMPH # 0.6 K/mm3 (1.2-3.4); LYMPH % 8.3 % (20.0-51.0); MEAN CELL VOLUME 86 fl (80.0-100.0); MEAN CORPUSCULAR HEMOGLOBIN 30 pg (27-31); MEAN CORPUSCULAR HGB CONC 35 g/dl (33.0-37.0); MONO % 13.4 % (1.7-9.3); PLATELET COUNT 296 K/mm3 (130-400)
[2021-08-05 18:31] LABS: ALBUMIN 3.3 gm/dL (3.4-4.8); C-REACTIVE PROTEIN 8.47 mg/dL (0.00-0.50); CREATININE, serum 0.93 mg/dL (0.72-1.25); POTASSIUM 3.5 mmol/L (3.5-4.5); TOTAL PROTEIN 6.8 gm/dL (6.2-8.1)
[2021-08-05] MEDS ORDERED: PROTONIX 40MG T40 MG PO (19:54)
[2021-08-05 20:10] LABS: COLLECTION METHOD CLEAN CATCH
[2021-08-05 20:18] LABS: PH 6 (5-8); SQUAMOUS EPITHELIAL 0-2 /hpf (0-10); URINE APPEARANCE Clear (CLEAR/HAZY); URINE BACTERIA None Seen /hpf (NONE SEEN); URINE BILIRUBIN Negative (NEGATIVE); URINE BLOOD 2+ (NEGATIVE); URINE COLOR Yellow (YELLOW); URINE GLUCOSE Negative (NEGATIVE); URINE KETONE Negative (NEGATIVE); URINE LEUKOCYTE ESTERASE Negative (NEGATIVE); URINE NITRATE Negative (NEGATIVE); URINE PROTEIN(semi-quant) Negative (NEGATIVE); URINE UROBILINOGEN Negative (NEGATIVE)
[2021-08-05] MEDS ORDERED: PREDNISONE10 MG PO (20:50)
[2021-08-05 21:27] VITALS: BP 156/93; PULSE 75
== END 2021-08-05 21:27 | disposition home or self-care (01) ==
LOC: COL.ER 17:26
PROVIDERS: Nurse Practitioner
DX: R10.84 Generalized abdominal pain (principal); F17.290 Nicotine dependence, other tobacco product, uncomplicated
CPT/HCPCS: J0360; J2405; J3010; J7030; J7512; Q9967

== ENCOUNTER 2021-09-30 19:28 | Inpatient (IN) | payer MEDICARE, MEDICAID ==
[~2021-09-30] VITALS: Ht 182.9 cm; Wt 72.0 kg
[2021-09-30 20:32] LABS: BASO % 0.4 % (0.0-2.0); EOS % 0.2 % (0.0-4.0); GRAN # 4.4 K/mm3 (1.4-6.5); GRAN % 77.6 % (42.2-75.2); HEMATOCRIT 44.1 % (42.0-52.0); HEMOGLOBIN 15.6 g/dl (13.5-18.0); LYMPH # 0.6 K/mm3 (1.2-3.4); LYMPH % 9.7 % (20.0-51.0); MEAN CELL VOLUME 87 fl (80.0-100.0); MEAN CORPUSCULAR HEMOGLOBIN 31 pg (27-31); MEAN CORPUSCULAR HGB CONC 35 g/dl (33.0-37.0); MONO # 0.7 K/mm3 (0.1-0.6); MONO % 11.6 % (1.7-9.3); PLATELET COUNT 348 K/mm3 (130-400); RED BLOOD COUNT 5.09 M/mm3 (4.20-5.60); REDCELL DISTRIBUTION WIDTH-CV 13.6 % (11.5-14.5)
[2021-09-30 20:48] LABS: ALBUMIN 3.6 gm/dL (3.4-4.8); BILIRUBIN,TOTAL 0.9 mg/dL (0.2-1.2); CALCIUM 9.6 mg/dL (8.4-10.2); CREATININE, serum 0.93 mg/dL (0.72-1.25); POTASSIUM 3.3 mmol/L (3.5-4.5); TOTAL PROTEIN 7.2 gm/dL (6.2-8.1)
[2021-09-30 20:53] LABS: TROPONIN-I 0.016 ng/mL (0.00-0.033)
[2021-10-01 06:56] VITALS: BP 178/88; PULSE 50; TEMP 97.7
[2021-10-01 07:22] LABS: BASO % 0.2 % (0.0-2.0); GRAN # 3.6 K/mm3 (1.4-6.5); GRAN % 84.8 % (42.2-75.2); HEMOGLOBIN 14.2 g/dl (13.5-18.0); LYMPH # 0.4 K/mm3 (1.2-3.4); LYMPH % 8.9 % (20.0-51.0); MEAN CELL VOLUME 87 fl (80.0-100.0); MEAN CORPUSCULAR HEMOGLOBIN 31 pg (27-31); MEAN CORPUSCULAR HGB CONC 36 g/dl (33.0-37.0); MEAN PLATELET VOLUME 8.2 fl (7.4-10.4); MONO # 0.3 K/mm3 (0.1-0.6); MONO % 5.9 % (1.7-9.3); PLATELET COUNT 328 K/mm3 (130-400); RED BLOOD COUNT 4.62 M/mm3 (4.20-5.60); REDCELL DISTRIBUTION WIDTH-CV 13.8 % (11.5-14.5)
[2021-10-01 07:39] LABS: CALCIUM 8.7 mg/dL (8.4-10.2); CREATININE, serum 0.8 mg/dL (0.72-1.25); MAGNESIUM 1.7 mg/dL (1.6-2.6); POTASSIUM 3.2 mmol/L (3.5-4.5)
[2021-10-01 07:48] VITALS: BP 181/82; PULSE 51; TEMP 98.1
[2021-10-01 11:58] VITALS: BP 169/91; PULSE 67; TEMP 98
--- NOTE | 2021-10-01 14:54 | NUR ---
Cathodic Protection Technician met with patient to discuss discharge planning. Patient lives alone in [place] and sees Dr. Ocampo for primary care. Patient obtains medications from [facility] and advised he normally picks up his medications, but may consider switching to delivery. Patient has a pair of crutches he uses occasionally and advised he is normally independent except for when he has a crohn's flare up. Patient does have a few hours a week of services from [place]. Patient does not have Advance Directives and does not feel he needs DPOA-HC at this time. Patient is not , has no children and his parents, Jose and Zaida Fowler" are his legal next of kin. Patient is interested in IPR. Referral given to Jacqui, IPR Director. Patient does not want to provide a second preference at this time. SW reviewed SNF options and patient will consider these if I[facility] cannot accept. Discharge Plan: IPR Screen
[2021-10-01 15:59] VITALS: BP 184/86; PULSE 67; TEMP 97.8
--- NOTE | 2021-10-01 19:27 | NUR ---
Patient tolerating po intake. C/o of intermittent nausea. No complaints of pain. Fluids started. Patient resting in bed.
[2021-10-01 20:33] VITALS: BP 189/101; PULSE 78; TEMP 98.8
[2021-10-02] VITALS (7 sets, daily range): BP systolic 147–225; BP diastolic 85–125; PULSE 69–118; TEMP 98.2–98.7
[2021-10-02 06:16] LABS: CHOLESTEROL RISK RATIO 2.4
--- NOTE | 2021-10-02 12:36 | NUR ---
Order clarified for accuchecks/SS. Dr Rudd requests Q6h accuchecks with Q6h SSI.
--- NOTE | 2021-10-02 13:00 | NUR ---
Soraya: Confucianist Situation: house officer stopped by room on rounds Background: Pt was resting and content Assessment: Pt has hopes to get out this week. He has no other needs right now. Pt appreciated the visit Recommendation: Adjunct Business Instructor will follow up as needed
--- NOTE | 2021-10-02 14:56 | NUR ---
Patient to ultrasound at this time.
--- NOTE | 2021-10-02 15:29 | NUR ---
Cryptographer spoke with Jacqui, [facility] Director who declined referral as patient does not have a qualifying diagnosis and they do not have a bed available. SW followed up with patient who would like to return home with Home Health services. Patient stated he would like to use [facility] as he believes he has used them before. FER contacted Shaheed at [facility] and faxed referral. Discharge Plan: Home with
[2021-10-02] MEDS ORDERED: CATAPRES-TTS 20.2 M1 TD (16:07)
--- NOTE | 2021-10-02 17:00 | NUR ---
Patient had an uneventful day. Tolerated diet with out issue. C/O nausea one time-received zofran with good results but this was prior to eating for the day. Blood pressures remained elevated but trending down with new medications regimen. Had a small bowel CT this afternoon-waiting results. Potassium was 3.0 this AM received PO replacement and is due for redraw at 1800. Also received magnesium replacement. New INT to left forearm due to old site infiltrating. Flushes well. Denies current questions/concerns. Call light in reach. Will monitor.
--- NOTE | 2021-10-02 17:56 | NUR ---
Call from [employer] that patients heart rate was in the 130s. This nurse to bedside and vitals taken. Patient was hunched over in the bed with hands under the covers. Blood pressure much better-140s/80s-HR down to 107. Family is at bedside to visit. Denies chest pain/nausea/shortness of breath. Instructed t call for needs. Call light in reach. Will monitor.
--- NOTE | 2021-10-02 18:21 | NUR ---
HAFSA Rosario notified of continued tachycardia. New orders received for EKG. Notified respiratory of new orders. Will be up to get it.
[2021-10-03] VITALS (8 sets, daily range): BP systolic 150–192; BP diastolic 80–113; PULSE 68–109; TEMP 97.7–99.1
--- NOTE | 2021-10-03 05:00 | NUR ---
PCT ENTERED ROOM TO DO VITAL SIGNS, THE PATIENT WAS MASTERBATING AND HAS BEEN DOING SO MOST OF THE DAY WHEN NURSES/CIRCUIT BOARD INSPECTOR HAVE ENTERED THE ROOM. TYPICALLY THE PCT WILL ASSIST THE PATIENT TO THE BATHROOM TO URINATE, HOWEVER THE PATIENT WAS STATING THAT HE WAS GOING TO BE USING THE URINAL. THE PCT SAID SHE WOULD WAIT SO SHE COULD DUMP IT AND CLEAN IT UP AND THE PATIENT RESPONDED "IT'S GOING TO TAKE ME A WHILE." THE PCT IMMEDIATELY EXITED THE ROOM.
[2021-10-03 06:31] LABS: HEMATOCRIT 42.6 % (42.0-52.0); HEMOGLOBIN 15.3 g/dl (13.5-18.0); MEAN CELL VOLUME 86 fl (80.0-100.0); MEAN CORPUSCULAR HEMOGLOBIN 31 pg (27-31); MEAN CORPUSCULAR HGB CONC 36 g/dl (33.0-37.0); MEAN PLATELET VOLUME 8.4 fl (7.4-10.4); PLATELET COUNT 404 K/mm3 (130-400); RED BLOOD COUNT 4.95 M/mm3 (4.20-5.60); REDCELL DISTRIBUTION WIDTH-CV 13.7 % (11.5-14.5)
[2021-10-03 06:47] LABS: CALCIUM 9.3 mg/dL (8.4-10.2); CREATININE, serum 0.85 mg/dL (0.72-1.25); MAGNESIUM 2.1 mg/dL (1.6-2.6); POTASSIUM 3.3 mmol/L (3.5-4.5)
[2021-10-03 07:30] LABS: BAND 1 % (0-10); LYMPHOCYTE 3 % (20.0-51.0); NEUTROPHILS 95 % (42.0-75.2)
[2021-10-03 07:33] LABS: PLATELET ESTIMATE NORMAL (NORMAL)
--- NOTE | 2021-10-03 10:05 | NUR ---
VSS, PT A&O X4, PT ABLE TO MAKE NEEDS KNOWN, PT RESTING IN BED, DENIES PAIN, FALL PRECAUTIONS IN PLACE, CALL LIGHT IN REACH
[2021-10-03] MEDS ORDERED: NORVASC 10MG10 MG PO (13:39)
[2021-10-03] MEDS ORDERED: APRESOLINE 10MG10 MG PO (13:39)
[2021-10-03] MEDS ORDERED: ASPIRIN 81M81 MG/TA2 PO (13:40)
[2021-10-03] MEDS ORDERED: PREDNISONE10 MG PO (13:43)
--- NOTE | 2021-10-03 13:52 | NUR ---
PT HYPERTENSIVE, BP RE CHECKED AND REMAINED HYPERTENSIVE, JOSELYN PEREYRA NOTIFIED, PRN IV HYDRALAZINE GIVEN
--- NOTE | 2021-10-03 14:21 | NUR ---
PT REPORTED HAVING "CHEST TIGHTNESS" ANSLEY PEREYRA NOTIFIED AND ASKED FOR ME TO GIVE PRN TYLENOL
--- NOTE | 2021-10-03 14:22 | NUR ---
PT BP 163/84, ANLSEY PEREYRA NOTIFIED
[2021-10-03] MEDS ORDERED: ANTIVERT 25MG25 MG PO (16:28)
--- NOTE | 2021-10-03 16:44 | NUR ---
Patient to discharge today. FER contacted Shaheed at [facility] and faxed discharge orders and summary. FER advised patient will need a FWW. FER met with patient who requested order be sent to [facility]. FER advised there was no delivery helper today at either [facility] or [facility]. Patient stated he's not that worried about the walker, he's more worried about his medications. Patient stated he may have a walker he can borrow for tonight. FER advised the order would be sent to [facility] and they would follow up tomorrow. Patient agreeable to this plan. FER updated Hospitalist who is also agreeable. FER contacted [facility] and faxed referral with order.
--- NOTE | 2021-10-03 16:53 | NUR ---
PT REPORTED DIZZINESS, ANSLEY PEREYRA NOTIFIED AND ASSESSED PT, PT AGREEABLE TO DISCHARGE WITH WALKER FOR HOME USE
--- NOTE | 2021-10-04 13:48 | NUR ---
Drafting Technician contacted Fransisco at [facility] and he advised they plan to deliver patient's walker to the home today.
== END 2021-10-03 18:12 | disposition home or self-care (01) | DRG 392 ==
LOC: COL.ER 19:28 → MEDICAL 10-01 02:19
PROVIDERS: Nurse Practitioner Primary Care; Physician Assistant; Student in an Organized Health Care Education/Training Program; ADMIT Internal Medicine
DX: A08.4 Viral intestinal infection, unspecified (principal); K50.90 Crohn's disease, unspecified, without complications; E44.0 Moderate protein-calorie malnutrition; E78.5 Hyperlipidemia, unspecified; I10 Essential (primary) hypertension; F41.9 Anxiety disorder, unspecified; Z20.822 Contact with and (suspected) exposure to COVID-19; K44.9 Diaphragmatic hernia without obstruction or gangrene; E87.6 Hypokalemia; F32.A Depression, unspecified; K20.90 Esophagitis, unspecified without bleeding; K26.9 Duodenal ulcer, unspecified as acute or chronic, without hemorrhage or perforation; Z90.49 Acquired absence of other specified parts of digestive tract; Z72.89 Other problems related to lifestyle; Z86.73 Personal history of transient ischemic attack (TIA), and cerebral infarction without residual deficits; Z90.89 Acquired absence of other organs; Z87.19 Personal history of other diseases of the digestive system; Z79.52 Long term (current) use of systemic steroids; Z87.891 Personal history of nicotine dependence; Z68.21 Body mass index [BMI] 21.0-21.9, adult
CPT/HCPCS: OP; A9575; C9113; G0378; J0360; J0780; J1650; J1790; J1815; J2405; J2704; J2920; J3475; J7030; J7512; Q9967

== ENCOUNTER → 2021-12-19 | Outpatient (CLI) | payer MEDICARE, MEDICAID ==
[~2021-12-19] MED LIST changes: +ANTIVERT 25MG25 MG PO; +APRESOLINE 10MG10 MG PO; +CATAPRES-TTS 20.2 M1 TD
[2021-12-19 16:34] LABS: MEAN CELL VOLUME 93 fl (80.0-100.0); MEAN CORPUSCULAR HGB CONC 34 g/dl (33.0-37.0); MEAN PLATELET VOLUME 8.1 fl (7.4-10.4); PLATELET COUNT 334 K/mm3 (130-400); REDCELL DISTRIBUTION WIDTH-CV 15.3 % (11.5-14.5)
[2021-12-19 16:35] LABS: HEMATOCRIT 28.7 % (42.0-52.0); HEMOGLOBIN 9.8 g/dl (13.5-18.0); MEAN CORPUSCULAR HEMOGLOBIN 32 pg (27-31)
[2021-12-19 16:51] LABS: ALBUMIN 3.4 gm/dL (3.4-4.8); BILIRUBIN,TOTAL 0.4 mg/dL (0.2-1.2); CALCIUM 9.1 mg/dL (8.4-10.2); CREATININE, serum 0.83 mg/dL (0.72-1.25); POTASSIUM 4.9 mmol/L (3.5-4.5); TOTAL PROTEIN 6.1 gm/dL (6.2-8.1)
[2021-12-19 16:52] LABS: LYMPHOCYTE 2 % (20.0-51.0); METAMYELOCYTE 2 % (0-0); NEUTROPHILS 89 % (42.0-75.2); PLATELET ESTIMATE NORMAL (NORMAL)
[2021-12-19 22:29] LABS: HEPATITIS B SURFACE ANTIBODY <2.0 (()); HEPATITIS B SURFACE ANTIGEN Negative (Negative)
[2021-12-20 17:21] LABS: TB GOLD INTERPRETATION Negative (Negative)
== END ==
LOC: COL.LAB 15:34 → COL.RAD 15:34
DX: K50.012 Crohn's disease of small intestine with intestinal obstruction (principal)

== ENCOUNTER 2022-05-30 22:04 | Emergency (ER) | payer MEDICARE, MEDICAID ==
[~2022-05-30] VITALS: Ht 182.9 cm; Wt 68.2 kg
[~2022-05-30 22:04] MED LIST changes: +K-TAB20 PO; +LAMICTAL 25MG T25 MG PO; +LIPITOR 80MG80 MG PO; +PLAVIX 75MG TAB75 MG PO; +PRINIVIL40 MG PO
[2022-05-30 22:12] VITALS: TEMP 98.2
[2022-05-30 23:10] LABS: MEAN CELL VOLUME 94 fl (80.0-100.0); MEAN CORPUSCULAR HGB CONC 35 g/dl (33.0-37.0); MEAN PLATELET VOLUME 8.1 fl (7.4-10.4); PLATELET COUNT 292 K/mm3 (130-400); RED BLOOD COUNT 2.81 M/mm3 (4.20-5.60); REDCELL DISTRIBUTION WIDTH-CV 14.9 % (11.5-14.5)
[2022-05-30 23:17] LABS: INR 0.9 (0.8-3.0); PROTHROMBIN TIME 10.2 SECONDS (9.7-12.8)
[2022-05-30 23:20] LABS: PARTIAL THROMBOPLASTIN TIME 23.7 SECONDS (26.0-37.0)
[2022-05-30 23:22] LABS: HEMATOCRIT 26.3 % (42.0-52.0); HEMOGLOBIN 9.1 g/dl (13.5-18.0); MEAN CORPUSCULAR HEMOGLOBIN 32 pg (27-31)
[2022-05-30 23:32] LABS: ALANINE AMINOTRANSFERASE 46 U/L (0-55); ALBUMIN 3.2 gm/dL (3.4-4.8); ALKALINE PHOSPHATASE 61 U/L (40-150); ANION GAP 14 mmol/L (7-16); AST,SGOT 69 U/L (5-34); BILIRUBIN,TOTAL 0.4 mg/dL (0.2-1.2); BLOOD UREA NITROGEN 15 mg/dL (8-26); C-REACTIVE PROTEIN 0.13 mg/dL (0.00-0.50); CALCIUM 8.1 mg/dL (8.4-10.2); CARBON DIOXIDE 21 mmol/L (23-31); CHLORIDE 99 mmol/L (98-107); CREATININE, serum 0.88 mg/dL (0.72-1.25); GLUCOSE 140 mg/dL (70-99); LIPASE 94 U/L (8-78); PHOSPHOROUS 4.3 mg/dL (2.3-4.7); POTASSIUM 3.9 mmol/L (3.5-4.5); SODIUM 134 mmol/L (136-145); TOTAL PROTEIN 5.4 gm/dL (6.2-8.1)
[2022-05-30 23:39] LABS: TROPONIN-I < 0.010 ng/mL (0.00-0.033)
[2022-05-30 23:51] LABS: LYMPHOCYTE 7 % (20.0-51.0); METAMYELOCYTE 2 % (0-0); NEUTROPHILS 89 % (42.0-75.2); PLATELET ESTIMATE NORMAL (NORMAL)
[2022-05-31 00:10] LABS: ERYTHROCYTE SEDIMENTATION RATE 1 mm/hr (0-30)
[2022-05-31 00:27] LABS: COLLECTION METHOD CLEAN CATCH
[2022-05-31 00:32] LABS: SQUAMOUS EPITHELIAL None Seen /hpf (0-10); URINE BACTERIA Rare /hpf (NONE SEEN); URINE WBC 0-2 /hpf (0-2)
[2022-05-31 00:33] LABS: URINE APPEARANCE Clear (CLEAR/HAZY); URINE BLOOD 1+ (NEGATIVE); URINE COLOR Yellow (YELLOW); URINE GLUCOSE Negative (NEGATIVE); URINE KETONE Negative (NEGATIVE); URINE NITRATE Negative (NEGATIVE); URINE PROTEIN(semi-quant) Negative (NEGATIVE); URINE UROBILINOGEN 0.2 E.U/dL (0.2-1.0)
[2022-05-31 01:31] VITALS: BP 118/78; PULSE 76
== END 2022-05-31 01:31 | disposition home or self-care (01) ==
LOC: COL.ER 22:04
PROVIDERS: Emergency Medicine
DX: M06.9 Rheumatoid arthritis, unspecified (principal); Z87.19 Personal history of other diseases of the digestive system; Z86.16 Personal history of COVID-19; Z20.822 Contact with and (suspected) exposure to COVID-19
CPT/HCPCS: J2405; J2930; J7030

== ENCOUNTER 2023-04-24 12:12 | Emergency (ER) | payer MEDICAID ==
[~2023-04-24] VITALS: Ht 180.3 cm; Wt 68.2 kg
[~2023-04-24 12:12] MED LIST changes: +KEPPRA 500MG500 MG PO; +TRELEGY ELLIPT1 EAC1 IH
[2023-04-24 12:15] VITALS: TEMP 97.3
[2023-04-24 12:48] LABS: BASO # 0.1 K/mm3 (0.0-0.2); BASO % 0.5 % (0.0-2.0); EOS # 0.5 K/mm3 (0.0-0.7); EOS % 4.5 % (0.0-4.0); GRAN % 74.1 % (42.2-75.2); HEMATOCRIT 37.4 % (42.0-52.0); HEMOGLOBIN 12.5 g/dl (13.5-18.0); LYMPH % 9.2 % (20.0-51.0); MEAN CELL VOLUME 88 fl (80.0-100.0); MEAN CORPUSCULAR HEMOGLOBIN 30 pg (27-31); MEAN CORPUSCULAR HGB CONC 33 g/dl (33.0-37.0); MEAN PLATELET VOLUME 8.1 fl (7.4-10.4); MONO # 1.2 K/mm3 (0.1-0.6); MONO % 11.2 % (1.7-9.3); PLATELET COUNT 272 K/mm3 (130-400); RED BLOOD COUNT 4.23 M/mm3 (4.20-5.60); REDCELL DISTRIBUTION WIDTH-CV 14.1 % (11.5-14.5)
[2023-04-24 13:22] LABS: ALBUMIN 3.2 gm/dL (3.4-4.8); BILIRUBIN,TOTAL 0.3 mg/dL (0.2-1.2); CALCIUM 9.8 mg/dL (8.4-10.2); CREATININE, serum 1.02 mg/dL (0.72-1.25); POTASSIUM 3.4 mmol/L (3.5-4.5); TOTAL PROTEIN 6.3 gm/dL (6.2-8.1)
[2023-04-24] MEDS ORDERED: cloNIDine 0.1 MG TAB PO ONE (13:45)
[2023-04-24 14:00] LABS: TROPONIN-I 0.011 ng/mL (0.00-0.033)
[2023-04-24] MEDS ORDERED: dilTIAZem 25 MG/5 ML VIAL IV ONE (14:15)
[2023-04-24] MEDS ORDERED: Acetaminophen 500 MG TAB PO ONE (14:15)
[2023-04-24 15:13] VITALS: BP 130/82; PULSE 68
== END 2023-04-24 15:15 | disposition home or self-care (01) ==
LOC: COL.ER 12:12
PROVIDERS: Personal Emergency Response Attendant
DX: I10 Essential (primary) hypertension (principal); Z79.899 Other long term (current) drug therapy
CPT/HCPCS: J1920

== ENCOUNTER 2023-08-22 16:03 | Emergency (ER) | payer MEDICAID ==
[~2023-08-22] VITALS: Ht 180.3 cm; Wt 68.2 kg
[2023-08-22 16:08] VITALS: TEMP 97.1
[2023-08-22] MEDS ORDERED: cloNIDine 0.1 MG TAB PO ONE (17:45)
[2023-08-22 18:55] VITALS: BP 141/85; PULSE 78
== END 2023-08-22 19:05 | disposition home or self-care (01) ==
LOC: COL.ER 16:03
DX: S93.402A Sprain of unspecified ligament of left ankle, initial encounter (principal); S70.02XA Contusion of left hip, initial encounter; I10 Essential (primary) hypertension; Z87.891 Personal history of nicotine dependence; X50.1XXA Overexertion from prolonged static or awkward postures, initial encounter; Y93.02 Activity, running